=== PATIENT | female | born 1950 | race Caucasian/White ===

== ENCOUNTER → 2016-11-04 | Outpatient (CLI) | payer MEDICARE ==
--- NOTE | 2016-11-04 13:34 | US ---
EXAMINATION TYPE: US kidneys/renal and bladder DATE OF EXAM: 11/04/2016 COMPARISON: NONE CLINICAL HISTORY: R31.9 Hematuria, R10.9 Bilateral Flank Pain. UTI, intermittent bilateral flank pain : greater on right side, history of kidney stones, hematuria, morbidly obese patient EXAM MEASUREMENTS: Right Kidney: 11.7 x 6.1 x 5.9 cm Left Kidney: 12.4 x 5.7 x 5.2 cm Technically difficult and suboptimal study due to morbidly obese patient Right Kidney: no hydronephrosis or masses seen at this time Left Kidney: no hydronephrosis or masses seen at this time Bladder: not fully distended Bilateral Jets seen: no There is no evidence for hydronephrosis at this point in time. No nephrolithiasis is seen. No danial s are identified on images saved. The urinary bladder is anechoic. Bilateral ureteral jets are not seen. Loss of cortical medullary differentiation left kidney is identified on images saved. Incidental hete rogeneous appearance to visualize liver suggests fatty infiltration. IMPRESSION: Suboptimal study without hydronephrosis seen bilaterally.
== END | disposition home or self-care (01) ==
LOC: RADUSWWP 12:55
PROVIDERS: ATTEND Internal Medicine
DX: R31.9 Hematuria, unspecified (principal); R10.32 Left lower quadrant pain; R10.31 Right lower quadrant pain
CPT/HCPCS: 76770

== ENCOUNTER → 2017-01-06 | Outpatient (CLI) | payer MEDICARE ==
--- NOTE | 2017-01-07 10:46 | MM ---
Reason for exam: screening (asymptomatic). Last mammogram was performed 5 years and 8 months ago. History: Patient is postmenopausal. Physical Findings: A clinical breast exam by your physician is recommended on an annual basis and results should be correlated with mammographic findings. MG 3D Screening Mammo W/Cad Bilateral CC, MLO, and XCCL view(s) were taken. Prior study comparison: May 19, 2011, bilateral digital screening mammo w/CAD. There are scattered fibroglandular densities. There is chronic nodularity bilaterally. ASSESSMENT: Benign, BI-RAD 2 RECOMMENDATION: Routine screening mammogram of both breasts in 1 year.
== END | disposition home or self-care (01) ==
LOC: RADMAMWWP 14:48
PROVIDERS: ATTEND Internal Medicine
DX: Z12.31 Encounter for screening mammogram for malignant neoplasm of breast (principal)
CPT/HCPCS: 77063; G0202

== ENCOUNTER → 2017-06-30 | Outpatient (CLI) | payer MEDICARE ==
[2017-06-30 16:21] LABS: Blood Urea Nitrogen 28 mg/dL (7-17)
--- NOTE | 2017-07-01 07:35 | CT ---
EXAMINATION TYPE: CT abdomen pelvis w con DATE OF EXAM: 06/30/2017 HISTORY: Patient complains of RLQ pain. CT DLP: 2074.1mGycm Automated Exposure Control for Dose Reduction was Utilized. CONTRAST: CT scan of the abdomen and pelvis is performed with oral and with IV Contrast, patient injected with 80 mL of Visipaque 320. COMPARISON: Complete abdominal ultrasound March 16, 2017 FINDINGS: LUNG BASES: Mild cardiomegaly is present. LIVER/GB: Visualized liver is heterogeneously hypodense which correlates with fatty infiltration seen on ultrasound. Some dependent densities consistent with small stones or gallbladder sludge which cor relates with ultrasound. No inflammatory change surrounds gallbladder. PANCREAS: No significant abnormality is seen. SPLEEN: No significant abnormality is seen. ADRENALS: No significant abnormality is seen. KIDNEYS: Slight cortical thinning in both kidneys is seen. BOWEL: Some diverticula are seen in the left and sigmoid colon. There is no CT evidence for acute div erticulitis. There is no suspicious small or large bowel dilatation. Normal-appearing appendix is see n from cecum. UTERUS/ADNEXA:. Calcified fibroids in the uterus are present. LYMPH NODES: No greater than 1cm abdominal or pelvic lymph nodes are appreciated. OSSEOUS STRUCTURES: Multilevel vacuum disc phenomenon and disc space narrowing in the lumbar spine. T here is similar multilevel vacuum disc phenomenon with disc space narrowing and spurring in the visua lized thoracic spine. Moderate joint space loss in both hips. OTHER: There is mild calcified plaque in the ectatic aorta. IMPRESSION: No significant finding is seen to account for patient's clinical symptoms.
== END | disposition home or self-care (01) ==
LOC: RADCTMAIN 15:38
PROVIDERS: ATTEND Surgery
DX: R10.84 Generalized abdominal pain (principal)
CPT/HCPCS: 82565; 84520; 74177; 36415; Q9967

== ENCOUNTER 2017-07-16 07:40 | Day surgery (SDC) | payer MEDICARE ==
[2017-07-14 17:14] VITALS: BMI 49.4
[~2017-07-16 07:40] MED LIST: DEXAMETHASONE SOD PHOSPHATE 10 MG/ML 1 ML VIAL IV ONE; HEPARIN SODIUM,PORCINE 5,000 UNIT/ML 1 ML VIAL SQ ONE; LACTATED RINGERS 1,000 ML IV SCH; MIDAZOLAM 2 MG/2 ML VIAL IV PRN; MORPHINE SULFATE 4 MG/ML SYRINGE IV PRN; ONDANSETRON 4 MG/2 ML VIAL IVP ONE
[2017-07-16 08:25] LABS: Glucose,Whole Blood 206 mg/dL (75-99)
[2017-07-16] MEDS ORDERED: LIDOCAINE 1% 20 ML VIAL (10MG/ML) FOR IV START INTRADERMA ONE (08:25)
--- NOTE | 2017-07-16 10:10 | P.HPADDEND ---
H&P Addendum H&P Addendum Date: 07/16/17 Patient here today for elective cholecystectomy. Her recent CAT scan showed no etiology for her right-sided pain. This was discussed with the patient by phone. Again the operative risks were reviewed with her during our office visit. No additional changes to the history and physical.
[2017-07-16] MEDS ORDERED: SUCCINYLCHOLINE CHLORIDE 100 MG/5 ML SYR IV ONE (10:12)
[2017-07-16] MEDS ORDERED: GLYCOPYRROLATE 0.2 MG/ML 2 ML VIAL ONE (10:12)
[2017-07-16] MEDS ORDERED: fentaNYL (PF) 50 MCG/ML 2 ML AMP ONE (10:12)
[2017-07-16] MEDS ORDERED: ePHEDrine SULFATE/0.9% NACL/PF 50 MG/5 ML SYRINGE IV ONE (10:12)
[2017-07-16] MEDS ORDERED: NEOSTIGMINE 1 MG/ML 10 ML VIAL ONE (10:12)
[2017-07-16] MEDS ORDERED: ROCURONIUM BROMIDE 10 MG/ML 10 ML VIAL IV ONE (10:12)
[2017-07-16] MEDS ORDERED: MIDAZOLAM 2 MG/2 ML VIAL ONE (10:12)
[2017-07-16] MEDS ORDERED: LIDOCAINE 1% INJ 10MG/ML (20 ML MDV) ONE (10:12)
[2017-07-16] MEDS ORDERED: PHENYLEPHRINE-0.9% NACL SYG 1 MG/10 ML SYRINGE ONE (10:12)
[2017-07-16] MEDS ORDERED: PROPOFOL 10 MG/ML 20 ML VIAL IV ONE (10:12)
[2017-07-16] MEDS ORDERED: BUPIVACAINE (PF) 0.5% 30 ML VIAL SQ ONE ×2 (10:35)
[2017-07-16] MEDS ORDERED: NALOXONE 0.4 MG/ML 1 ML VIAL IV PRN (11:09)
[2017-07-16] MEDS ORDERED: HYDROcodone/APAP 5-325MG 1 EACH TAB PO PRN (11:09)
--- NOTE | 2017-07-16 11:10 | P.OP ---
Date of Procedure: 07/16/17 Procedure(s) Performed: PREOPERATIVE DIAGNOSIS: Chronic cholecystitis POSTOPERATIVE DIAGNOSIS: Same PROCEDURE: Laparoscopic cholecystectomy SURGEON: Julissa EBL: Minimal see anesthesia record ANESTHESIA: Gen. COMPLICATIONS: None OPERATIVE PROCEDURE: The patient was brought and placed on the operating room table in the supine position. The patient was placed under general anesthesia at that time. The abdomen was prepped and draped in the usual sterile fashion. A small vertical infraumbilical incision was made. The fascia was grasped with the Jocelyn forceps. The fascia was retracted anteriorly. The Veress needle was advanced into the peritoneal cavity. The saline drop test was normal. Insufflation took place up to 15 mmHg. A 5 mm optical trocar was advanced and the peritoneal cavity. 2 additional 5 mm trochars were placed in the right upper quadrant under direct visualization. A 10 mm trocar was advanced into the epigastric incision site. The gallbladder was retracted superiorly and laterally. The peritoneum overlying the infundibulum was bluntly dissected. The patient's cystic duct was visualized. The junction between the cystic duct common and hepatic duct was identified. The cystic duct was then divided after placement of 3 10 mm clips on the patient's side and one on the specimen side. The cystic artery was identified and clipped as well. A small vessel was seen along the gallbladder fossa and clipped as well. The gallbladder was then removed from the liver bed using electrocautery. The gallbladder was then removed from the epigastric trocar site with an Endo Catch bag. The gallbladder fossa was irrigated with saline. There was no evidence of any bleeding or biliary drainage seen. The trochars were then removed. The fascia at the 10 millimeter site was closed using a figure-of- eight 0 Vicryl stitch. The skin at all 4 sites was closed using a 4-0 Monocryl stitch. A small area of bleeding at the epigastric trocar site was controlled using a [id number] 4-0 Monocryl stitch. At the end of this procedure the sponge and needle counts were correct. DISPOSITION: Stable to the recovery room
[2017-07-16 11:37] VITALS: TEMP 98.6
[2017-07-16 11:52] LABS: Glucose,Whole Blood 319 mg/dL (75-99)
[2017-07-16] MEDS ORDERED: INSULIN ASPART 100 UNIT/ML 1 ML 10 ML VIAL SQ ONE ×2 (11:53→15:10)
[2017-07-16] MEDS: HYDROmorphone 0.5 MG/0.5 ML SYRINGE IVP ONE ×2 (12:00→12:16)
[2017-07-16] MEDS ORDERED: LACTATED RINGERS 1,000 ML IV ONE ×2 (12:32)
[2017-07-16 14:57] LABS: Glucose,Whole Blood 328 mg/dL (75-99)
[2017-07-16 15:16] VITALS: BP 120/64
[2017-07-16 16:34] VITALS: PULSE 72; RESP 18
[2017-07-16 17:07] LABS: Glucose,Whole Blood 322 mg/dL (75-99)
== END 2017-07-16 17:18 | disposition home or self-care (01) ==
LOC: OR 07:40
PROVIDERS: ATTEND Surgery
DX: K80.10 Calculus of gallbladder with chronic cholecystitis without obstruction (principal); I10 Essential (primary) hypertension; E11.9 Type 2 diabetes mellitus without complications; M19.90 Unspecified osteoarthritis, unspecified site; E66.01 Morbid (severe) obesity due to excess calories; M79.7 Fibromyalgia; G47.33 Obstructive sleep apnea (adult) (pediatric); Z79.82 Long term (current) use of aspirin; Z79.84 Long term (current) use of oral hypoglycemic drugs; Z79.899 Other long term (current) drug therapy; Z68.42 Body mass index [BMI] 45.0-49.9, adult
CPT/HCPCS: 88304; 47562; J2250; J2270; J1644; J1100; J2710; J0690; J2405; J2001; J3010; J2370; J0330; J2704; J1170

== ENCOUNTER 2018-06-13 09:00 | Inpatient (IN) | payer MEDICARE ==
--- NOTE | 2018-06-13 09:51 | ED ---
General Adult HPI - General Chief complaint: Shortness of Breath Stated complaint: Diff Breathing Time Seen by Provider: 06/13/18 09:00 Source: patient, RN notes reviewed Mode of arrival: wheelchair Limitations: no limitations - History of Present Illness Initial comments: This is a 67-year-old female with past mental history significant for hypertension. Patient states yesterday she started feeling some intermittent palpitations and shortness of breath with exertion. Patient states she had been noticing she had a cough but it was a dry cough there was no sputum production. Patient states EKG she has some sharp chest pain it was only lasting 1-2 seconds. Patient states currently she only complains of some shortness of breath and palpitations. Patient states she's never had any history of atrial fibrillation. Patient states the main reason she came in was the shortness of breath with exertion. Patient is also had some increased edema to her feet. Patient denies any dominant pain. Patient denies nausea vomiting diarrhea. Patient denies any fever or chills. Patient denies lightheadedness dizziness or near syncopal episode. - Related Data Home Medications Medication Instructions Recorded Confirmed Aspirin 81 mg PO DAILY 04/15/16 06/13/18 Diclofenac Sodium [Voltaren] 75 mg PO DAILY 04/15/16 06/13/18 Venlafaxine HCl [Effexor] 37.5 mg PO BID 04/15/16 06/13/18 amLODIPine BESYLATE/BENAZEPRIL 1 cap PO DAILY 04/15/16 06/13/18 [Lotrel 5-20 mg Capsule] metFORMIN HCL [Glucophage] 1,000 tab PO BID 04/15/16 06/13/18 Atorvastatin [Lipitor] 10 mg PO HS 07/14/17 06/13/18 Ergocalciferol (Vitamin D2) 50,000 unit PO WEEKLY 07/14/17 06/13/18 [Vitamin D2] glipiZIDE [Glucotrol] 10 mg PO AC-BID 07/14/17 06/13/18 Pregabalin [Lyrica] 150 mg PO DAILY 06/13/18 06/13/18 sitaGLIPtin [Januvia] 100 mg PO DAILY 06/13/18 06/13/18 Allergies Allergy/AdvReac Type Severity Reaction Status Date / Time No Known Allergies Allergy Verified 06/13/18 10:24 Review of Systems ROS Statement: Those systems with pertinent positive or pertinent negative responses have been documented in the HPI. ROS Other: All systems not noted in ROS Statement are negative. Past Medical History Past Medical History: Diabetes Mellitus, Fibromyalgia, Hyperlipidemia, Hypertension, Osteoarthritis (OA) Additional Past Medical History / Comment(s): HX COLON POLYPS, ARTHRITIS KNEES. , KIDNEY STONES. History of Any Multi-Drug Resistant Organisms: None Reported Additional Past Surgical History / Comment(s): LITHOTRIPSY, D&C. COLONOSCOPY. Past Anesthesia/Blood Transfusion Reactions: No Reported Reaction Past Psychological History: Depression Smoking Status: Never smoker Past Alcohol Use History: Rare Past Drug Use History: None Reported - Past Family History Mother Family Medical History: Cancer General Exam - General Exam Comments Initial Comments: GENERAL: Patient is well-developed and well-nourished. Patient is nontoxic and well- hydrated and is in mild distress. ENT: Neck is soft and supple. No significant lymphadenopathy is noted. Oropharynx is clear. Moist mucous membranes. Neck has full range of motion without eliciting any pain. EYES: The sclera were anicteric and conjunctiva were pink and moist. Extraocular movements were intact and pupils were equal round and reactive to light. Eyelids were unremarkable. PULMONARY: Patient is tachycardic and has an irregular rate and rhythm. Heart rate is about 160 beats a minute CARDIOVASCULAR: There is a regular rate and rhythm without any murmurs gallops or rubs. ABDOMEN: Soft and nontender with normal bowel sounds. No palpable organomegaly was noted. There is no palpable pulsatile mass. SKIN: Skin is clear with no lesions or rashes and otherwise unremarkable. NEUROLOGIC: Patient is alert and oriented x3. Cranial nerves II through XII are grossly intact. Motor and sensory are also intact. Normal speech, volume and content. Symmetrical smile. MUSCULOSKELETAL: Normal extremities with adequate strength and full range of motion. 1+ edema bilaterally LYMPHATICS: No significant lymphadenopathy is noted PSYCHIATRIC: Normal psychiatric evaluation. Limitations: no limitations Course Vital Signs 06/13/18 06/13/18 06/13/18 09:01 09:44 11:07 Temperature 98.9 F Pulse Rate 156 H 158 H 139 H Respiratory 28 H 18 18 Rate Blood Pressure 147/99 108/68 118/87 O2 Sat by Pulse 92 L 96 98 Oximetry Medical Decision Making - Medical Decision Making EKG shows atrial fibrillation with rapid ventricular response occasional PVC at 160 beats a minute. Patient's EKG shows no ST segment elevation or depression. I started the patient a Cardizem drip no bolus was given because of blood pressure was systolic blood pressure at 104. I started the patient on heparin as well. I consulted Dr. Nava he agreed to admit the patient admitted the patient I consult to cardiology. Patient requested Dr. Nava. - Lab Data Result diagrams: 06/13/18 09:30 06/13/18 09:30 Lab Results 06/13/18 06/13/18 06/13/18 Range/Units 09:30 09:30 09:30 WBC 12.4 H (3.8-10.6) k/uL RBC 4.17 (3.80-5.40) m/uL Hgb 11.6 (11.4-16.0) gm/dL Hct 35.6 (34.0-46.0) % MCV 85.4 (80.0-100.0) fL MCH 27.8 (25.0-35.0) pg MCHC 32.5 (31.0-37.0) g/dL RDW 15.1 (11.5-15.5) % Plt Count 288 (150-450) k/uL Neutrophils % 80 % Lymphocytes % 12 % Monocytes % 4 % Eosinophils % 3 % Basophils % 0 % Neutrophils # 9.9 H (1.3-7.7) k/uL Lymphocytes # 1.5 (1.0-4.8) k/uL Monocytes # 0.4 (0-1.0) k/uL Eosinophils # 0.4 (0-0.7) k/uL Basophils # 0.0 (0-0.2) k/uL Hypochromasia Slight PT (9.0-12.0) sec INR (<1.2) APTT (22.0-30.0) sec Sodium 143 (137-145) mmol/L Potassium 4.5 (3.5-5.1) mmol/L Chloride 110 H (98-107) mmol/L Carbon Dioxide 20 L (22-30) mmol/L Anion Gap 13 mmol/L BUN 23 H (7-17) mg/dL Creatinine 0.89 (0.52-1.04) mg/dL Est GFR (CKD-EPI)AfAm 77 (>60 ml/min/1.73 sqM) Est GFR (CKD-EPI)NonAf 67 (>60 ml/min/1.73 sqM) Glucose 255 H (74-99) mg/dL Calcium 9.5 (8.4-10.2) mg/dL Magnesium 1.3 L (1.6-2.3) mg/dL Total Bilirubin 0.7 (0.2-1.3) mg/dL AST 19 (14-36) U/L ALT 17 (9-52) U/L Alkaline Phosphatase 85 (38-126) U/L Total Creatine Kinase 35 (30-135) U/L CK-MB (CK-2) 1.0 (0.0-2.4) ng/mL CK-MB (CK-2) Rel Index 2.9 Troponin I <0.012 (0.000-0.034) ng/mL NT-Pro-B Natriuret Pep pg/mL Total Protein 6.7 (6.3-8.2) g/dL Albumin 3.7 (3.5-5.0) g/dL 06/13/18 06/13/18 Range/Units 09:30 09:30 WBC (3.8-10.6) k/uL RBC (3.80-5.40) m/uL Hgb (11.4-16.0) gm/dL Hct (34.0-46.0) % MCV (80.0-100.0) fL MCH (25.0-35.0) pg MCHC (31.0-37.0) g/dL RDW (11.5-15.5) % Plt Count (150-450) k/uL Neutrophils % % Lymphocytes % % Monocytes % % Eosinophils % % Basophils % % Neutrophils # (1.3-7.7) k/uL Lymphocytes # (1.0-4.8) k/uL Monocytes # (0-1.0) k/uL Eosinophils # (0-0.7) k/uL Basophils # (0-0.2) k/uL Hypochromasia PT 9.9 (9.0-12.0) sec INR 0.9 (<1.2) APTT 22.8 (22.0-30.0) sec Sodium (137-145) mmol/L Potassium (3.5-5.1) mmol/L Chloride (98-107) mmol/L Carbon Dioxide (22-30) mmol/L Anion Gap mmol/L BUN (7-17) mg/dL Creatinine (0.52-1.04) mg/dL Est GFR (CKD-EPI)AfAm (>60 ml/min/1.73 sqM) Est GFR (CKD-EPI)NonAf (>60 ml/min/1.73 sqM) Glucose (74-99) mg/dL Calcium (8.4-10.2) mg/dL Magnesium (1.6-2.3) mg/dL Total Bilirubin (0.2-1.3) mg/dL AST (14-36) U/L ALT (9-52) U/L Alkaline Phosphatase (38-126) U/L Total Creatine Kinase (30-135) U/L CK-MB (CK-2) (0.0-2.4) ng/mL CK-MB (CK-2) Rel Index Troponin I (0.000-0.034) ng/mL NT-Pro-B Natriuret Pep 1320 pg/mL Total Protein (6.3-8.2) g/dL Albumin (3.5-5.0) g/dL Critical Care Time Critical Care Time: Yes Total Critical Care Time: 35 Disposition Clinical Impression: New onset atrial fibrillation Disposition: ADMITTED IP TO THIS HOSP Referrals: Ronnie Mendoza MD [Primary Care Provider] - 1-2 days Time of Disposition: 11:35
--- NOTE | 2018-06-13 10:02 | XR ---
EXAMINATION TYPE: XR chest 2V DATE OF EXAM: 06/13/2018 COMPARISON: NONE HISTORY: Dyspnea. TECHNIQUE: Frontal and lateral views of the chest are obtained. FINDINGS: Cardiomegaly is present. There are small bilateral pleural effusions with moderate central opacities favoring interstitial edema. Upper lungs are clear without pneumothorax. Osseous structure s are intact. IMPRESSION: Findings are consistent with CHF exacerbation as there is cardiomegaly with small bilater al pleural effusions and moderate bilateral interstitial edema felt present.
[2018-06-13 10:08] LABS: Basophils % (A) 0 %; Eosinophils # (A) 0.4 k/uL (0-0.7); Eosinophils % (A) 3 %; HCT 35.6 % (34.0-46.0); HGB 11.6 gm/dL (11.4-16.0); Hypochromasia Slight; Lymphocytes # (A) 1.5 k/uL (1.0-4.8); Lymphocytes % (A) 12 %; MCH 27.8 pg (25.0-35.0); MCHC 32.5 g/dL (31.0-37.0); MCV 85.4 fL (80.0-100.0); Monocytes # (A) 0.4 k/uL (0-1.0); Monocytes % (A) 4 %; Neutrophils # (A) 9.9 k/uL (1.3-7.7); Neutrophils % (A) 80 %; Platelet Count 288 k/uL (150-450); RBC 4.17 m/uL (3.80-5.40); RDW 15.1 % (11.5-15.5); WBC 12.4 k/uL (3.8-10.6)
[2018-06-13] MEDS: DILTIAZEM 50 MG in SODIUM CHLORIDE 0.9% 40 ML IV SCH ×2 (10:18→18:06)
[2018-06-13 10:19] LABS: Albumin 3.7 g/dL (3.5-5.0); Calcium 9.5 mg/dL (8.4-10.2); Magnesium 1.3 mg/dL (1.6-2.3); Total Bilirubin 0.7 mg/dL (0.2-1.3); Total Protein 6.7 g/dL (6.3-8.2)
[2018-06-13 10:24] LABS: INR 0.9 (<1.2); Partial Thromboplastin Time 22.8 sec (22.0-30.0); Prothrombin Time 9.9 sec (9.0-12.0)
[2018-06-13 10:26] LABS: Potassium 4.5 mmol/L (3.5-5.1)
[2018-06-13 10:32] LABS: Creatine Kinase 35 U/L (30-135)
[2018-06-13 10:46] LABS: Troponin I <0.012 ng/mL (0.000-0.034)
[2018-06-13] MEDS ORDERED: HEPARIN SODIUM,PORCINE 5,000 UNIT/ML 1 ML VIAL IV ONE (11:33)
[2018-06-13] MEDS: HEPARIN SOD,PORK IN 0.45% NACL 25,000 UNIT in 0.45% NACL 1 250ML.BAG IV SCH (12:10)
[2018-06-13 17:34] LABS: Glucose,Whole Blood 200 mg/dL (75-99)
[2018-06-13] MEDS: ASPIRIN 81 MG PO SCH (17:37)
[2018-06-13] MEDS: amLODIPine 5 MG TAB PO SCH (17:37)
[2018-06-13] MEDS: PREGABALIN 75 MG CAP PO SCH (17:38)
[2018-06-13] MEDS: LISINOPRIL 20 MG TAB PO SCH (17:38)
[2018-06-13] MEDS: ETODOLAC 400 MG TAB PO SCH (17:38)
[2018-06-13] MEDS: VENLAFAXINE HCL 37.5 MG TAB PO SCH ×2 (17:38→20:45)
[2018-06-13] MEDS: LINAGLIPTIN 5 MG TABLET PO SCH (17:41)
[2018-06-13] MEDS: metFORMIN 500 MG TAB PO SCH (17:41)
[2018-06-13] MEDS: glipiZIDE 10 MG TAB PO SCH (17:41)
[2018-06-13] MEDS: INSULIN ASPART 100 UNIT/ML 1 ML 10 ML VIAL SQ SCH ×2 (17:44→21:44)
[2018-06-13] MEDS ORDERED: FUROSEMIDE 10 MG/ML 4 ML VIAL IV STA (19:54)
[2018-06-13] MEDS ORDERED: LACTULOSE 20 GM/30 ML CUP PO PRN (19:55)
[2018-06-13] MEDS ORDERED: MAGNESIUM HYDROXIDE 2,400 MG/10 ML CUP PO PRN (19:55)
[2018-06-13] MEDS ORDERED: TEMAZEPAM 15 MG CAP PO PRN (19:55)
[2018-06-13] MEDS ORDERED: CALCIUM CARBONATE 500 MG CHEWABLE PO PRN (19:55)
[2018-06-13] MEDS ORDERED: ONDANSETRON 4 MG/2 ML VIAL IVP PRN (19:55)
[2018-06-13] MEDS ORDERED: ALPRAZolam 0.25 MG TAB PO PRN (19:55)
[2018-06-13] MEDS: ATORVASTATIN 10 MG TAB PO SCH (20:45)
--- NOTE | 2018-06-13 20:57 | HP ---
HISTORY AND PHYSICAL DATE OF ADMISSION: 06/13/2018 DATE OF SERVICE: 06/13/2018 PRESENTING COMPLAINT: Short of breath, palpitation. HISTORY OF PRESENTING COMPLAINT: This is a pleasant 67-year-old patient, well known to me, who follows with the family doctor, Dr. Mendoza. She requested to be admitted to my service. Chronic stable medical conditions include hypertension, diabetes, fibromyalgia, sciatica, osteoarthritis, depression. She presented with her friend and her sister. Patient at her baseline uses a cane to get about. Two days ago she felt she had developed what she describes as a cold and became congested in the chest, and by yesterday, over 24 hours, she had become more and more short of breath, started having palpitation, shortness of breath and noticed swelling in the lower extremities. She could barely walk without getting really short of breath. She presented to the ER and was found to be in atrial fibrillation with rapid ventricular rate. The patient was started on IV Cardizem drip and IV heparin. She denies any fever or chills. No chest pain. Denies any prior cardiac history. She thinks she may have had a stress test about 2 or 3 years ago. REVIEW OF SYSTEMS: CONSTITUTIONAL: Tired. HEENT: None. RESPIRATORY: As above. CARDIOVASCULAR: As above GASTROINTESTINAL: None. GENITOURINARY: None. MUSCULOSKELETAL: Arthritic pain in many joints. As above. DERMATOLOGICAL: None. HEMATOLOGIC: None. LYMPHATICS: None. PSYCHIATRY: None. NEUROLOGICAL: None. NEUROLOGICAL none. PAST MEDICAL HISTORY: 1. Hypertension. 2. Diabetes. 3. Fibromyalgia. 4. Sciatica. 5. Insomnia. 6. Osteoarthritis. 7. Depression. PAST SURGICAL HISTORY: 1. Cholecystectomy. 2. Tubal ligation. 3. Lithotripsy. 4. Colonoscopy. PSYCH HISTORY: Depression. SOCIAL HISTORY: Patient's son lives with her. She uses a cane or walker at times. She does drive. No smoking. Alcohol rarely. FAMILY HISTORY: Dementia. Mother had colon cancer. HOME MEDICATIONS: 1. Januvia 100 mg a day. 2. Metformin 1000 mg b.i.d. 3. Glipizide 10 mg b.i.d. 4. Lotrel 5/20 one capsule p.o. daily. 5. Effexor 37.5 b.i.d. 6. Lyrica 150 mg p.o. daily. 7. Vitamin D2 50,000 units p.o. weekly. 8. Voltaren 75 mg p.o. daily. 9. Lipitor 10 mg at bedtime. 10.Aspirin 81 mg p.o. daily. ALLERGIES: NONE. PHYSICAL EXAMINATION: VITAL SIGNS ON PRESENTATION: Temperature 98.9, pulse 156, respiration 28, blood pressure 147/99, pulse ox 92% on room air. GENERAL APPEARANCE: Well built; BMI 49.4. Sitting at the edge of the bed, slightly short of breath. EYES: Pupils equal. Conjunctivae normal. HEENT: External appearance of nose and ears normal. Oral cavity normal. NECK: Short, thick. JVD unable to assess. Mass not palpable. RESPIRATORY: Effort increased. LUNGS: Diminished breath sounds. CARDIOVASCULAR: Heart sounds muffled. Some edema. ABDOMEN: Distended, soft. Liver and spleen not palpable. LYMPHATIC: No lymph node palpable in neck or axillae. PSYCHIATRY: Alert and oriented x3. Mood and affect normal. MUSCULOSKELETAL: Evidence of osteoarthritis, especially in the hands and knees. INVESTIGATIONS: White count 12.4, hemoglobin 11.6, potassium 4.5, BUN 23, creatinine 0.89, blood glucose 255, magnesium 1.3. Troponin less than 0.012. ProBNP 1320. EKG tracing, personally reviewed by me, shows atrial fibrillation, rapid ventricular rate. Chest x-ray film, personally reviewed by me, shows cardiomegaly, bilateral venous prominence, interstitial edema. ASSESSMENT: 1. New-onset atrial fibrillation with rapid ventricular rate. 2. Acute pulmonary edema, possibly precipitated by uncontrolled atrial fibrillation. Patient has no prior history of cardiac disease. 3. Essential hypertension. 4. Diabetes mellitus, type 2, on oral hypoglycemic, uncontrolled with hyperglycemia. 5. Chronic fibromyalgia. 6. Sciatica. 7. Primary osteoarthritis. 8. Depression not otherwise specified. 9. Chronic insomnia. 10.Morbid obesity with body mass index of 49.4. PLAN: Patient is on IV Cardizem drip. Patient was put on IV heparin. Patient will need oral anticoagulation. Will check patient's TSH in the morning. I put the patient on IV Lasix 40 q.12. Two-D echocardiogram has been ordered. Accu-Cheks will be followed with sliding scale insulin. Care was discussed with the patient and family at bedside. Questions were answered. MMODL / IJN: [id number] /
[2018-06-13 21:09] LABS: Glucose,Whole Blood 166 mg/dL (75-99)
[2018-06-14 03:49] LABS: Calcium 9.1 mg/dL (8.4-10.2); Potassium 4.4 mmol/L (3.5-5.1)
[2018-06-14] MEDS: DILTIAZEM 50 MG in SODIUM CHLORIDE 0.9% 40 ML IV SCH ×4 (04:01→20:47)
[2018-06-14] MEDS: HEPARIN SODIUM,PORCINE 5,000 UNIT/ML 1 ML VIAL IV PRN ×2 (04:40→21:46)
[2018-06-14] MEDS: INSULIN ASPART 100 UNIT/ML 1 ML 10 ML VIAL SQ SCH ×4 (06:54→20:47)
[2018-06-14 06:55] LABS: Glucose,Whole Blood 126 mg/dL (75-99)
[2018-06-14] MEDS: glipiZIDE 10 MG TAB PO SCH ×2 (07:10→18:10)
[2018-06-14] MEDS: metFORMIN 500 MG TAB PO SCH ×2 (07:10→18:10)
[2018-06-14] MEDS: PREGABALIN 75 MG CAP PO SCH (09:27)
[2018-06-14] MEDS: ASPIRIN 81 MG PO SCH (09:27)
[2018-06-14] MEDS: FUROSEMIDE 10 MG/ML 4 ML VIAL IV SCH ×3 (09:27→20:17)
[2018-06-14] MEDS: LINAGLIPTIN 5 MG TABLET PO SCH (09:27)
[2018-06-14] MEDS: LISINOPRIL 20 MG TAB PO SCH (09:27)
[2018-06-14] MEDS: amLODIPine 5 MG TAB PO SCH (09:27)
[2018-06-14] MEDS: ETODOLAC 400 MG TAB PO SCH (09:29)
[2018-06-14] MEDS: VENLAFAXINE HCL 37.5 MG TAB PO SCH ×2 (09:30→20:17)
--- NOTE | 2018-06-14 10:06 | ECHOF ---
Referral Reason:af MEASUREMENTS -------- HEIGHT: 157.5 cm WEIGHT: 122.5 kg BP: 113/68 RVIDd: 2.4 cm (< 3.3) IVSd: 1.4 cm (0.6 - 1.1) LVIDd: 4.1 cm (3.9 - 5.3) LVPWd: 1.5 cm (0.6 - 1.1) IVSs: 2.0 cm LVIDs: 3.3 cm LVPWs: 1.9 cm LA Diam: 3.8 cm (2.7 - 3.8) LAESV Index (A-L): 30.63 ml/m Ao Diam: 2.9 cm (2.0 - 3.7) AV Cusp: 2.1 cm (1.5 - 2.6) MV EXCURSION: 14.577 mm (> 18.000) MV EF SLOPE: 118 mm/s (70 - 150) EPSS: 1.2 cm RAP: 5.00 mmHg RVSP: 27.74 mmHg FINDINGS -------- Atrial fibrillation. This was a technically adequate study. The left ventricular size is normal. There is moderate concentric left ventricular hypertrophy. O verall left ventricular systolic function is mildly impaired with, an EF between 45 - 50 %. The right ventricle is normal in size. LA is midly dilated 29-33ml/m2. The right atrium is normal in size. The aortic valve is trileaflet and appears structurally normal. Mild mitral regurgitation is present. Mild tricuspid regurgitation present. Right ventricular systolic pressure is normal at < 35 mmHg. Trace/mild (physiologic) pulmonic regurgitation. The aortic root size is normal. Normal inferior vena cava with normal inspiratory collapse consistent with estimated right atrial pre ssure of 5 mmHg. The inferior vena cava is mildly dilated. There is no pericardial effusion. CONCLUSIONS -------- 1. Atrial fibrillation. 2. This was a technically adequate study. 3. The left ventricular size is normal. 4. There is moderate concentric left ventricular hypertrophy. 5. Overall left ventricular systolic function is mildly impaired with, an EF between 45 - 50 %. 6. The right ventricle is normal in size. 7. LA is midly dilated 29-33ml/m2. 8. The right atrium is normal in size. 9. The aortic valve is trileaflet and appears structurally normal. 10. Mild mitral regurgitation is present. 11. Mild tricuspid regurgitation present. 12. Right ventricular systolic pressure is normal at < 35 mmHg. 13. Trace/mild (physiologic) pulmonic regurgitation. 14. The aortic root size is normal. 15. Normal inferior vena cava with normal inspiratory collapse consistent with estimated right atrial pressure of 5 mmHg. 16. The inferior vena cava is mildly dilated. 17. There is no pericardial effusion. CASINO WORKER: Karla Phillips RDCS
--- NOTE | 2018-06-14 10:16 | P.CRDCN ---
History of Present Illness Consult date: 06/14/18 Requesting physician: Oscar Nava Consult reason: atrial fibrillation, congestive heart failure Chief complaint: Shortness of breath and palpitations History of present illness: This is a pleasant 67-year-old female with history of hypertension, diabetes, hyperlipidemia, fibromyalgia, depression, who recently has been dealing with an upper respiratory infection since approximately Wednesday or so. She felt on Wednesday to be more congested, she also noticed herself to be significantly more short of breath. She also noticed palpitations in her chest which started on Wednesday or Wednesday off and on. She came to the emergency room for further evaluation. GN presentation here showed atrial fibrillation with a rapid ventricular response. Chest x-ray performed on admission showed findings consistent with congestive heart failure exacerbation, cardiomegaly, small bilateral pleural effusion and moderate bilateral interstitial edema. Blood pressure on arrival here 148/98, heart rate 156, temperature 98.9, 92% on room air. Blood pressure this morning 114/60 with a heart rate of 100, 93% on 3 L of oxygen. White blood cell count 12.4, hemoglobin 11.6, platelet count 288. Sodium 142, potassium 4.4, BUN 30 and creatinine 1.2, her BUN yesterday was 23 and creatinine 0.8. Blood glucose on arrival 255, Mag on arrival 1.3, 1.4 this morning. Troponin 0.012. BNP level 1320. At the time of my examination this morning, patient is sitting up in her chair at bedside. She does state that she feels significantly better than her presentation here. Denies palpitations at present although she continues to be in atrial fibrillation. She is currently on IV heparin and IV Cardizem. Patient did have a stress test, Anisa scan, performed here February 2017 which was negative for any reversible ischemia. Past Medical History Past Medical History: Diabetes Mellitus, Fibromyalgia, Hyperlipidemia, Hypertension, Osteoarthritis (OA) Additional Past Medical History / Comment(s): NIDDM type II, neuropathy bilateral feet, R leg sciatica, arthritis bilateral knees, kidney stones with surgery, sinus allergies. History of Any Multi-Drug Resistant Organisms: None Reported Past Surgical History: Cholecystectomy, Tubal Ligation Additional Past Surgical History / Comment(s): LITHOTRIPSY, D&C. COLONOSCOPY/ BENIGN POLYP, LAP OMER. Past Anesthesia/Blood Transfusion Reactions: No Reported Reaction Smoking Status: Never smoker - Past Family History Mother Family Medical History: Cancer, Dementia Additional Family Medical History / Comment(s): Mother had colon cancer. Father Family Medical History: CVA/TIA Additional Family Medical History / Comment(s): Father was healthy until later in life when he had a bowel obstruction and CVA. Medications and Allergies Home Medications Medication Instructions Recorded Confirmed Type Aspirin 81 mg PO DAILY 04/15/16 06/13/18 History Diclofenac Sodium [Voltaren] 75 mg PO DAILY 04/15/16 06/13/18 History Venlafaxine HCl [Effexor] 37.5 mg PO BID 04/15/16 06/13/18 History amLODIPine BESYLATE/BENAZEPRIL 1 cap PO DAILY 04/15/16 06/13/18 History [Lotrel 5-20 mg Capsule] metFORMIN HCL [Glucophage] 1,000 tab PO BID 04/15/16 06/13/18 History Atorvastatin [Lipitor] 10 mg PO HS 07/14/17 06/13/18 History Ergocalciferol (Vitamin D2) 50,000 unit PO WEEKLY 07/14/17 06/13/18 History [Vitamin D2] glipiZIDE [Glucotrol] 10 mg PO AC-BID 07/14/17 06/13/18 History Pregabalin [Lyrica] 150 mg PO DAILY 06/13/18 06/13/18 History sitaGLIPtin [Januvia] 100 mg PO DAILY 06/13/18 06/13/18 History Allergies Allergy/AdvReac Type Severity Reaction Status Date / Time No Known Allergies Allergy Verified 06/13/18 10:24 Physical Exam Vitals: Vital Signs Temp Pulse Pulse Resp BP BP Pulse Ox 06/14/18 08:06 93 L 06/14/18 06:12 101 H 113/68 06/14/18 03:30 138 H 15 134/85 92 L 06/14/18 02:00 109/51 06/14/18 00:50 130 H 124/68 06/13/18 23:39 130 H 18 112/55 94 L 06/13/18 20:32 98.7 F 137 H 16 141/75 94 L 06/13/18 17:30 98.1 F 71 20 112/78 95 06/13/18 16:30 129 H 22 104/75 95 06/13/18 14:05 150 H 24 97/72 93 L 06/13/18 11:07 139 H 18 118/87 98 Intake and Output 06/13/18 06/14/18 06/14/18 22:59 06:59 14:59 Intake Total 254.737 85.83 410 Balance 254.737 85.83 410 Intake: Intake, IV Titration 134.737 85.83 50 Amount Diltiazem 50 mg In Sodium 50 Chloride 0.9% 40 ml @ 10 MG/HR 10 mls/hr IV .Q5H CHARLY Rx#:[id number] Diltiazem 50 mg In Sodium 39 Chloride 0.9% 40 ml @ 5 MG/HR 5 mls/hr IV .Q10H CHARLY Rx#:[id number] Heparin Sod,Pork in 0.45% 95.737 85.83 NaCl 25,000 unit In 0.45 % NaCl 1 250ml.bag @ 8.16 UNITS/KG/HR 9.99 mls/hr IV .Q24H CHARLY Rx#: [id number] Oral 120 360 Other: # Voids 1 3 # Bowel Movements 1 PHYSICAL EXAMINATION: GENERAL: 67-year-old female in no acute distress at the time of my examination HEENT: Head is atraumatic, normocephalic. Pupils equal, round. Sclera anicteric. Conjunctiva are clear. Mucous membranes of the mouth are moist. Neck is supple. There is no elevated jugular venous pressure. No carotid bruit is heard. HEART EXAMINATION: Heart S1 and S2 irregularly irregular CHEST EXAMINATION: Lungs reveal diminished air entry to bilateral bases. ABDOMEN: Soft, obese, nontender. Bowel sounds are heard. No organomegaly noted. EXTREMITIES: 2+ peripheral pulses with trace evidence of peripheral edema and no calf tenderness noted. NEUROLOGIC patient is awake, alert and oriented 3. . Results 06/13/18 09:30 06/14/18 03:26 Cardiac Enzymes 06/13/18 06/13/18 Range/Units 09:30 09:30 AST 19 (14-36) U/L CK-MB (CK-2) 1.0 (0.0-2.4) ng/mL Troponin I <0.012 (0.000-0.034) ng/mL Coagulation 06/13/18 06/13/18 06/14/18 Range/Units 09:30 21:02 03:26 PT 9.9 (9.0-12.0) sec APTT 22.8 23.9 24.1 (22.0-30.0) sec CBC 06/13/18 Range/Units 09:30 WBC 12.4 H (3.8-10.6) k/uL RBC 4.17 (3.80-5.40) m/uL Hgb 11.6 (11.4-16.0) gm/dL Hct 35.6 (34.0-46.0) % Plt Count 288 (150-450) k/uL Comprehensive Metabolic Panel 06/13/18 06/14/18 Range/Units 09:30 03:26 Sodium 143 142 (137-145) mmol/L Potassium 4.5 4.4 (3.5-5.1) mmol/L Chloride 110 H 110 H (98-107) mmol/L Carbon Dioxide 20 L 22 (22-30) mmol/L BUN 23 H 30 H (7-17) mg/dL Creatinine 0.89 1.29 H (0.52-1.04) mg/dL Glucose 255 H 131 H (74-99) mg/dL Calcium 9.5 9.1 (8.4-10.2) mg/dL AST 19 (14-36) U/L ALT 17 (9-52) U/L Alkaline Phosphatase 85 (38-126) U/L Total Protein 6.7 (6.3-8.2) g/dL Albumin 3.7 (3.5-5.0) g/dL Current Medications Generic Name Dose Route Start Last Admin Trade Name Freq PRN Reason Stop Dose Admin Acetaminophen 650 mg 06/13/18 19:55 Tylenol Tab PO Q6HR PRN Mild Pain or Fever > 100.5 Alprazolam 0.25 mg 06/13/18 19:55 Xanax PO Q6HR PRN Anxiety Amlodipine Besylate 5 mg 06/13/18 14:45 06/14/18 09:27 Norvasc PO 5 mg DAILY CHARLY Administration Aspirin 81 mg 06/13/18 14:45 06/14/18 09:27 Aspirin PO 81 mg DAILY CHARLY Administration Atorvastatin Calcium 10 mg 06/13/18 21:00 06/13/18 20:45 Lipitor PO 10 mg HS CHARLY Administration Calcium Carbonate/Glycine 1,000 mg 06/13/18 19:55 Tums PO Q4HR PRN Dyspepsia Etodolac 400 mg 06/13/18 14:45 06/14/18 09:29 Lodine PO 400 mg DAILY CHARLY Administration Furosemide 40 mg 06/14/18 08:00 06/14/18 09:35 Lasix IV 40 mg Q12HR CHARLY Administration Glipizide 10 mg 06/13/18 17:30 06/14/18 07:10 Glucotrol PO 10 mg AC-BID CHARLY Administration Heparin Sodium (Porcine) 0 unit 06/14/18 04:10 06/14/18 04:40 Heparin IV 4,000 unit PER PROTOCOL PRN Administration Low PTT Protocol Heparin Sodium/Sodium Chloride 250 mls @ 9.99 mls/hr 06/13/18 11:45 06/14/18 04:02 25,000 unit/ Sodium Chloride IV 14.16 units/kg/hr .Q24H CHARLY 17.34 mls/hr Titration Protocol 8.16 UNITS/KG/HR Diltiazem HCl 50 mg/ Sodium 50 mls @ 10 mls/hr 06/14/18 03:30 06/14/18 09:27 Chloride IV 10 mg/hr .Q5H CHARLY 10 mls/hr Administration 10 MG/HR Insulin Aspart 0 unit 06/13/18 17:30 06/14/18 06:54 Novolog SQ Not Given ACHS [facility] Protocol Lactulose 20 gm 06/13/18 19:55 Cephulac PO DAILY PRN Constipation Linagliptin 5 mg 06/13/18 15:00 06/14/18 09:27 Tradjenta PO 5 mg DAILY CHARLY Administration Lisinopril 20 mg 06/13/18 15:00 06/14/18 09:27 Zestril PO 20 mg DAILY [facility] Administration Magnesium Hydroxide 2,400 mg 06/13/18 19:55 Milk Of Magnesia PO DAILY PRN Constipation Metformin HCl 1,000 mg 06/13/18 17:30 06/14/18 07:10 Glucophage PO 1,000 mg AC-BID [facility] Administration Ondansetron HCl 4 mg 06/13/18 19:55 Zofran IVP Q8HR PRN Nausea And Vomiting Pregabalin 150 mg 06/13/18 15:00 06/14/18 09:27 Lyrica PO 150 mg DAILY CHARLY Administration Temazepam 15 mg 06/13/18 19:55 Restoril PO HS PRN Insomnia Venlafaxine HCl 37.5 mg 06/13/18 15:00 06/14/18 09:30 Effexor PO 37.5 mg BID CHARLY Administration Intake and Output 06/13/18 06/14/18 06/14/18 22:59 06:59 14:59 Intake Total 254.737 85.83 410 Balance 254.737 85.83 410 Intake: Intake, IV Titration 134.737 85.83 50 Amount Diltiazem 50 mg In Sodium 50 Chloride 0.9% 40 ml @ 10 MG/HR 10 mls/hr IV .Q5H CHARLY Rx#:[id number] Diltiazem 50 mg In Sodium 39 Chloride 0.9% 40 ml @ 5 MG/HR 5 mls/hr IV .Q10H [facility]LY Rx#:[id number] Heparin Sod,Pork in 0.45% 95.737 85.83 NaCl 25,000 unit In 0.45 % NaCl 1 250ml.bag @ 8.16 UNITS/KG/HR 9.99 mls/hr IV .Q24H CHARLY Rx#: [id number] Oral 120 360 Other: # Voids 1 3 # Bowel Movements 1 06/13/18 09:30 06/14/18 03:26 EKG Interpretations (text) EKG on admission here shows atrial fibrillation with a rapid ventricular response Assessment and Plan Plan: Assessment and plan #1 atrial fibrillation with rapid ventricular response, appears to be of new onset. #2 congestive heart failure, likely exacerbated by A. fib with RVR, LV function unknown #3 hypertension #4 diabetes #5 hyperlipidemia #6 recent upper respiratory infection Plan We will obtain an echocardiogram with Doppler study. We will also check a T4 and TSH level. We will check into one of the newer anticoagulants, patient has been educated regarding the importance of anticoagulation for stroke prevention. We will start the patient on a beta rené, discontinue Cardizem drip. Further recommendations to follow. DNP note has been reviewed, I agree with a documented findings and plan of care. Patient was seen and examined.
[2018-06-14] MEDS ORDERED: Magnesium Replacement Protocol 1 EACH MISC MISCELLANE PRN (11:11)
[2018-06-14 11:51] LABS: Glucose,Whole Blood 182 mg/dL (75-99)
[2018-06-14] MEDS: MAGNESIUM SULFATE-D5W PMX 1 GM in DEXTROSE/WATER 1 100ML.BAG IVPB SCH ×3 (12:43→15:48)
[2018-06-14] MEDS: METOPROLOL TARTRATE 25 MG TAB PO SCH ×2 (12:43→20:16)
[2018-06-14] MEDS: HEPARIN SOD,PORK IN 0.45% NACL 25,000 UNIT in 0.45% NACL 1 250ML.BAG IV SCH ×2 (15:50→20:16)
[2018-06-14 16:44] LABS: Glucose,Whole Blood 234 mg/dL (75-99)
[2018-06-14] MEDS: MAGNESIUM OXIDE 400 MG TAB PO SCH (20:16)
[2018-06-14] MEDS: ATORVASTATIN 10 MG TAB PO SCH (20:16)
[2018-06-14 20:21] LABS: Glucose,Whole Blood 135 mg/dL (75-99)
--- NOTE | 2018-06-15 01:01 | PN ---
PROGRESS NOTE DATE OF SERVICE: 06/14/2018. PRESENTING COMPLAINT: Short of breath. INTERVAL HISTORY: This patient was admitted with new onset atrial fibrillation with rapid ventricular rate, acute pulmonary edema. The patient feels a bit better today. A bit tired though. Heart rate was better, better controlled. The patient remained on IV heparin, IV Cardizem. The patient's brother is visiting. Did tolerate some diet. REVIEW OF SYSTEMS: Done for constitutional, cardiovascular, GI, pulmonary; relevant findings as above. CURRENT MEDICATIONS: Reviewed, that include IV Cardizem drip, IV heparin, Lopressor 25 mg b.i.d. EXAMINATION: VITAL SIGNS: Temperature 96.3, pulse 74, respiratory rate 18, blood pressure 99/53, pulse ox 93 percent on 3 L. GENERAL APPEARANCE: Sitting on the edge of the bed, less short of breath. EYES: Pupils equal. Conjunctivae normal. NECK: JVD not raised. Mass not palpable. RESPIRATORY: Effort increased. LUNGS: Diminished breath sounds. CARDIOVASCULAR: Heart sounds muffled. Some edema. ABDOMEN: Soft, nontender. Liver and spleen not palpable. PSYCHIATRY: Alert and oriented x3. Mood and affect normal. INVESTIGATIONS: Telemetry shows atrial fibrillation, rate controlled. Potassium 4.4, BUN 30, creatinine 1.29. TSH is normal. Low magnesium. ASSESSMENT: 1. New-onset atrial fibrillation rapid ventricular rate on presentation, better controlled this afternoon. 2. Acute pulmonary edema, probably precipitated by uncontrolled atrial fibrillation, doing better. 3. Essential hypertension. 4. Status post oral hypoglycemic, uncontrolled with hypoglycemia. 5. Chronic fibromyalgia. 6. Sciatica. 7. Primary osteoarthritis. 8. Depression, not otherwise specified. 9. Chronic insomnia. 10.Morbid obesity BMI of 49.4. 11.Chronic gait dysfunction. Does use a cane. PLAN: Patient remains on IV Cardizem, IV heparin. Patient will be switched over to 1 of the oral anticoagulants per Cardiology. Keep a close eye on patient's renal function as has started to creep up, we will hold off patient's morning dose of Lasix until seen by Cardiology. MMODL / IJN: [id number] /
[2018-06-15] MEDS: DILTIAZEM 50 MG in SODIUM CHLORIDE 0.9% 40 ML IV SCH ×7 (02:48→22:34)
[2018-06-15 05:31] LABS: Calcium 9.2 mg/dL (8.4-10.2); Magnesium 2.1 mg/dL (1.6-2.3); Potassium 4.7 mmol/L (3.5-5.1)
[2018-06-15] MEDS: INSULIN ASPART 100 UNIT/ML 1 ML 10 ML VIAL SQ SCH ×4 (06:22→21:05)
[2018-06-15] MEDS: metFORMIN 500 MG TAB PO SCH ×2 (06:35→17:49)
[2018-06-15] MEDS: glipiZIDE 10 MG TAB PO SCH ×2 (06:35→17:49)
[2018-06-15 06:38] LABS: Glucose,Whole Blood 107 mg/dL (75-99)
[2018-06-15] MEDS: HEPARIN SOD,PORK IN 0.45% NACL 25,000 UNIT in 0.45% NACL 1 250ML.BAG IV SCH ×2 (06:38→17:49)
[2018-06-15] MEDS: ETODOLAC 400 MG TAB PO SCH (10:54)
[2018-06-15] MEDS: PREGABALIN 75 MG CAP PO SCH (10:54)
[2018-06-15] MEDS: VENLAFAXINE HCL 37.5 MG TAB PO SCH ×2 (10:54→21:13)
[2018-06-15] MEDS: amLODIPine 5 MG TAB PO SCH (10:55)
[2018-06-15] MEDS: MAGNESIUM OXIDE 400 MG TAB PO SCH ×2 (10:55→20:24)
[2018-06-15] MEDS: LISINOPRIL 20 MG TAB PO SCH (10:55)
[2018-06-15] MEDS: METOPROLOL TARTRATE 25 MG TAB PO SCH (10:55)
[2018-06-15] MEDS: ASPIRIN 81 MG PO SCH (10:55)
[2018-06-15] MEDS: LINAGLIPTIN 5 MG TABLET PO SCH (10:55)
[2018-06-15 11:55] LABS: Glucose,Whole Blood 149 mg/dL (75-99)
--- NOTE | 2018-06-15 15:05 | P.PN ---
Subjective Progress Note Date: 06/15/18 Principal diagnosis: CHF/atrial fibrillation This is a pleasant 67-year-old female patient with a past medical history significant for diabetes, hypertension, and dyslipidemia, as well as obesity, who was admitted to the hospital with congestive heart failure exacerbation as well as atrial fibrillation with rapid ventricular response. The atrial fibrillation is new to the patient. She underwent an echocardiogram and that revealed impaired LV function with EF between 40-45%. On follow-up with her today, she states she still short of breath. She still have bilateral lower extremities edema. The blood pressure has been on the low side. She still on Cardizem at 5 mg per hour. I am going to DC the Norvasc, DC the Cardizem, and increase the metoprolol to 50 mg by mouth twice a day. She still on heparin IV and we'll consider starting the patient on oral anticoagulation. Objective - Vital Signs Vital signs: Vital Signs Temp 98.4 F 06/15/18 08:00 Pulse 106 H 06/15/18 08:00 Resp 18 06/15/18 04:00 BP 102/55 06/15/18 08:00 Pulse Ox 95 06/15/18 08:00 Intake & Output 06/14/18 06/15/18 06/15/18 18:59 06:59 18:59 Intake Total 1245.933 443.1 480 Balance 1245.933 443.1 480 Weight 121 kg Intake: Intake, IV Titration 165.933 443.1 Amount Diltiazem 50 mg In Sodium 97.5 100 Chloride 0.9% 40 ml @ 10 MG/HR 10 mls/hr IV .Q5H CHARLY Rx#:[id number] Heparin Sod,Pork in 0.45% 68.433 343.1 NaCl 25,000 unit In 0.45 % NaCl 1 250ml.bag @ 8.16 UNITS/KG/HR 9.99 mls/hr IV .Q24H CHARLY Rx#: [id number] Oral 1080 480 Other: Voiding Method Toilet # Voids 3 # Bowel Movements 3 - Constitutional General appearance: Present: no acute distress - Respiratory Respiratory: bilateral: diminished - Cardiovascular Rhythm: irregularly irregular Heart sounds: normal: S1, S2 Abnormal Heart Sounds: Present: systolic murmur - Labs CBC & Chem 7: 06/13/18 09:30 06/15/18 03:27 Labs: Abnormal Lab Results - Last 24 Hours (Table) 06/14/18 06/14/18 06/14/18 Range/Units 16:42 20:20 21:07 APTT 39.8 H (22.0-30.0) sec Chloride (98-107) mmol/L Carbon Dioxide (22-30) mmol/L BUN (7-17) mg/dL Creatinine (0.52-1.04) mg/dL Glucose (74-99) mg/dL POC Glucose (mg/dL) 234 H 135 H (75-99) mg/dL 06/15/18 06/15/18 06/15/18 Range/Units 03:27 03:27 06:15 APTT 64.2 H (22.0-30.0) sec Chloride 109 H (98-107) mmol/L Carbon Dioxide 18 L (22-30) mmol/L BUN 39 H (7-17) mg/dL Creatinine 1.65 H (0.52-1.04) mg/dL Glucose 127 H (74-99) mg/dL POC Glucose (mg/dL) 107 H (75-99) mg/dL 06/15/18 Range/Units 11:49 APTT (22.0-30.0) sec Chloride (98-107) mmol/L Carbon Dioxide (22-30) mmol/L BUN (7-17) mg/dL Creatinine (0.52-1.04) mg/dL Glucose (74-99) mg/dL POC Glucose (mg/dL) 149 H (75-99) mg/dL Assessment and Plan Assessment: Assessment #1 atrial fibrillation with slightly uncontrolled heart rate. This is a new to the patient. #2 congestive heart failure exacerbation secondary to systolic dysfunction #3 multiple comorbid conditions including diabetes, hypertension, and dyslipidemia Plan #1 DC the Norvasc in view of the marginally low blood pressure #2 DC the Cardizem IV #3 increase the dose of metoprolol #4 continue IV Lasix #5 continue monitor the kidney function and electrolytes #6 follow-up with the patient
[2018-06-15 16:31] LABS: Glucose,Whole Blood 143 mg/dL (75-99)
[2018-06-15] MEDS: FUROSEMIDE 10 MG/ML 4 ML VIAL IV SCH ×2 (17:49→20:24)
[2018-06-15] MEDS: ATORVASTATIN 10 MG TAB PO SCH (20:24)
[2018-06-15] MEDS: METOPROLOL TARTRATE 50 MG TAB PO SCH (20:25)
[2018-06-15] MEDS: ACETAMINOPHEN TAB 325 MG TAB PO PRN (20:25)
[2018-06-15 20:40] LABS: Glucose,Whole Blood 109 mg/dL (75-99)
--- NOTE | 2018-06-16 02:26 | PN ---
PROGRESS NOTE DATE OF SERVICE: June 15, 2018. PRESENTING COMPLAINT: Short of breath. INTERVAL HISTORY: This patient I saw yesterday evening. Admitted with new onset atrial fibrillation with rapid ventricular rate, acute pulmonary edema, has been on IV Lasix. Renal function is creeping up. Does feel tired. Family is visiting. The patient does not like the hospital food. The patient had been on IV heparin. Medications adjusted by Cardiology. REVIEW OF SYSTEMS: Done for constitutional, cardiovascular, GI, pulmonary; relevant findings as above. CURRENT MEDICATIONS: Reviewed that include aspirin, Lipitor, IV Cardizem, IV Lasix, IV heparin, Zestril, Glucophage, Lopressor 50 mg b.i.d. EXAMINATION: VITAL SIGNS: Temperature 98.2, pulse 83, respiratory 18, blood pressure 157/81, pulse ox 97% on 2 L. GENERAL: Sitting on the edge of the bed, tired. Awake. EYES: Pupils equal. Conjunctivae normal. NECK JVD unable to assess. Mass not palpable. RESPIRATORY: Effort increased. Lungs, decreased breath sounds CARDIOVASCULAR: Heart sounds muffled. Some nonpitting edema. ABDOMEN: Soft, nontender. Liver and spleen not palpable. PSYCHIATRY: Alert and oriented x3. Mood and affect normal. INVESTIGATIONS: Potassium 4.7, BUN 39, creatinine 1.65, bicarb 18. Accu-Cheks are noted. ASSESSMENT: 1. New onset atrial fibrillation with rapid ventricular rate, now better controlled. 2. Acute pulmonary edema probably precipitated by uncontrolled atrial fibrillation. Doing better. 3. Essential hypertension. 4. Diabetes mellitus type 2 on oral hypoglycemics, uncontrolled with hypoglycemia. 5. Chronic fibromyalgia. 6. Sciatica. 7. Primary osteoarthritis. 8. Depression, not otherwise specified. 9. Chronic insomnia. 10.Morbid obesity BMI 49.4. 11.Chronic gait dysfunction does use a cane. 12.Acute renal failure prerenal from diuretics. PLAN: Discussed with Dr. Anton from Cardiology. Wishes to continue with IV Lasix for another 24 hours. Will keep a close eye on renal function. Other medications as being adjusted by Cardiology. We will add sodium bicarbonate for the metabolic acidosis. MMODL / IJN: [id number] /
[2018-06-16 04:15] LABS: Basophils % (A) 0 %; Eosinophils # (A) 0.3 k/uL (0-0.7); Eosinophils % (A) 3 %; HCT 29.9 % (34.0-46.0); Hypochromasia Slight; Lymphocytes # (A) 1.4 k/uL (1.0-4.8); Lymphocytes % (A) 15 %; MCH 27.5 pg (25.0-35.0); MCV 85.9 fL (80.0-100.0); Mean Platelet Volume 7.2; Monocytes # (A) 0.4 k/uL (0-1.0); Monocytes % (A) 4 %; Neutrophils % (A) 75 %; Platelet Count 231 k/uL (150-450); RBC 3.48 m/uL (3.80-5.40); RDW 15.2 % (11.5-15.5); WBC 9.3 k/uL (3.8-10.6)
[2018-06-16 04:17] LABS: HGB 9.6 gm/dL (11.4-16.0)
[2018-06-16 05:25] LABS: Calcium 8.8 mg/dL (8.4-10.2); Magnesium 2.3 mg/dL (1.6-2.3); Potassium 4.8 mmol/L (3.5-5.1)
[2018-06-16 05:56] LABS: Glucose,Whole Blood 94 mg/dL (75-99)
[2018-06-16] MEDS: INSULIN ASPART 100 UNIT/ML 1 ML 10 ML VIAL SQ SCH ×4 (05:58→21:35)
[2018-06-16] MEDS: metFORMIN 500 MG TAB PO SCH ×2 (07:05→16:48)
[2018-06-16] MEDS: glipiZIDE 10 MG TAB PO SCH (07:05)
[2018-06-16] MEDS: FUROSEMIDE 10 MG/ML 4 ML VIAL IV SCH ×2 (09:20→20:00)
[2018-06-16] MEDS: ETODOLAC 400 MG TAB PO SCH (09:20)
[2018-06-16] MEDS: VENLAFAXINE HCL 37.5 MG TAB PO SCH ×2 (09:20→22:40)
[2018-06-16] MEDS: MAGNESIUM OXIDE 400 MG TAB PO SCH ×2 (09:20→20:01)
[2018-06-16] MEDS: LISINOPRIL 20 MG TAB PO SCH (09:20)
[2018-06-16] MEDS: METOPROLOL TARTRATE 50 MG TAB PO SCH ×2 (09:20→20:01)
[2018-06-16] MEDS: LINAGLIPTIN 5 MG TABLET PO SCH (09:20)
[2018-06-16] MEDS: PREGABALIN 75 MG CAP PO SCH (09:20)
[2018-06-16] MEDS: SODIUM BICARBONATE TAB 650 MG TAB PO SCH ×3 (09:20→20:01)
[2018-06-16] MEDS: ASPIRIN 81 MG PO SCH (09:24)
[2018-06-16 11:46] LABS: Glucose,Whole Blood 61 mg/dL (75-99)
[2018-06-16 11:50] LABS: Glucose,Whole Blood 77 mg/dL (75-99)
--- NOTE | 2018-06-16 13:11 | CDI ---
Documentation Clarification Form Date: 06/16/2018 12:33:22 PM From: Kimberly Bradshaw RN, CCDS Admit Date: 06/13/2018 11:37:00 AM Patient Name: Amy Riley Visit Number: [id number] Discharge Date: ATTENTION: The Clinical Documentation Specialists (CDI) and [facility] Coding Staff appreciate your assistance in clarifying documentation. Please respond to the clarification below the line at the bottom and electronically sign. The CDI & [facility] Coding staff will review the response and follow-up if needed. Please note: Queries are made part of the Legal Health Record. If you have any questions, please contact the author of this message via ITS. Dr. Oscar Nava The patient presented with new onset atrial fibrillation with rapid ventricular rate. History/Risk Factors: Hypertension, Diabetes Mellitus, Hyperlipidemia, Fibromyalgia Clinical Indicators: Patient started feeling some intermittent palpitations and shortness of breath with exertion. She had some sharp chest pain, some increased edema to her feet. Vital signs on admission: 147/99 156 28 98.9 92 % RA EKG shows atrial fibrillation with rapid ventricular response at 160 beats a minute Lab findings: BNP 1320 Chest XR: Findings consistent with CHF exacerbation as there is cardiomegaly with small bilateral pleural effusions and moderate bilateral interstitial edema felt present. Treatment: Cardizem drip Lopressor PO Heparin drip Lasix IV Monitor Kidney function and electrolytes Consults Cardiology: Congestive heart failure exacerbation secondary to systolic dysfunction In your professional opinion, can you please further clarify acute pulmonary edema? With Heart disease or heart failure (Specified as Congestive heart failure with diastolic or systolic dysfunction, specify acute or chronic) Other, please specify Unable to determine (Last Revision: August 2017) addressed in progess note and dc summary MTDD
--- NOTE | 2018-06-16 14:05 | CDI ---
Documentation Clarification Form Date: 06/16/2018 1:37:07 PM From: Kimberly Bradshaw RN, CCDS Admit Date: 06/13/2018 11:37:00 AM Patient Name: Amy Riley Visit Number: [id number] Discharge Date: ATTENTION: The Clinical Documentation Specialists (CDI) and [facility] Coding Staff appreciate your assistance in clarifying documentation. Please respond to the clarification below the line at the bottom and electronically sign. The CDI & [facility] Coding staff will review the response and follow-up if needed. Please note: Queries are made part of the Legal Health Record. If you have any questions, please contact the author of this message via ITS. Dr. Rod Anton New onset Atrial Fibrillation is documented in the Emergency Department evaluation your consult and progress note. History/Risk Factors: Hypertension, Diabetes Mellitus Clinical Indicators: Present with complaints of intermittent palpitations and shortness of breath with exertion, sharp chest pain only lasting 1-2 seconds and increased edema to her feet. EKG/telemetry: Atrial fibrillation with rapid ventricular response at 160 beats a minute. Treatment: laboratory monitor Cardizem drip Heparin drip Lopressor PO Monitor PTT/INR ECHO In your professional opinion, can you please clarify the type of Atrial Fibrillation, if known? Paroxysmal Persistent Other, please specify Unable to determine (Last Revision: August 2017) MTDD
--- NOTE | 2018-06-16 15:44 | P.PN ---
Subjective Progress Note Date: 06/16/18 This is a pleasant 67-year-old female with history of hypertension, diabetes, hyperlipidemia, fibromyalgia, depression, who recently has been dealing with an upper respiratory infection since approximately Wednesday or so. She felt on Wednesday to be more congested, she also noticed herself to be significantly more short of breath. She also noticed palpitations in her chest which started on Wednesday or Wednesday off and on. She came to the emergency room for further evaluation. GN presentation here showed atrial fibrillation with a rapid ventricular response. Chest x-ray performed on admission showed findings consistent with congestive heart failure exacerbation, cardiomegaly, small bilateral pleural effusion and moderate bilateral interstitial edema. Blood pressure on arrival here 148/98, heart rate 156, temperature 98.9, 92% on room air. Blood pressure this morning 114/60 with a heart rate of 100, 93% on 3 L of oxygen. White blood cell count 12.4, hemoglobin 11.6, platelet count 288. Sodium 142, potassium 4.4, BUN 30 and creatinine 1.2, her BUN yesterday was 23 and creatinine 0.8. Blood glucose on arrival 255, Mag on arrival 1.3, 1.4 this morning. Troponin 0.012. BNP level 1320. At the time of my examination this morning, patient is sitting up in her chair at bedside. She does state that she feels significantly better than her presentation here. Denies palpitations at present although she continues to be in atrial fibrillation. She is currently on IV heparin and IV Cardizem. Patient did have a stress test, Anisa scan, performed here February 2017 which was negative for any reversible ischemia. 06/16/2018 Patient was seen and examined today, overall she does state that her breathing is improving. Blood pressure 102/60 with a heart rate in the 70s, 98% on 2 L of oxygen. She continues to be in atrial fibrillation, rate under much better control. Blood cell count 9.3, hemoglobin 9.6, platelet count 231. Sodium 144 , potassium 4.8, BUN 47, creatinine 1.7. Overall she is diuresing well although her weight is not reflective of this. We will discontinue the IV heparin and start the patient on Eliquis today. Check regarding coverage. Objective - Vital Signs Vital signs: Vital Signs Temp 98.4 F 06/16/18 08:00 Pulse 75 06/16/18 11:51 Resp 17 06/16/18 11:51 BP 102/65 06/16/18 11:51 Pulse Ox 98 06/16/18 11:51 Intake & Output 06/15/18 06/16/18 06/16/18 18:59 06:59 18:59 Intake Total 1020 730 360 Output Total 350 Balance 1020 380 360 Weight 121.5 kg Intake: IV 480 0.9. 320 Heparin Sod,Pork in 0.45% 160 NaCl 25,000 unit In 0.45 % NaCl 1 250ml.bag @ 8.16 UNITS/KG/HR 9.99 mls/hr IV .Q24H [facility] Rx#: [id number] Intake, IV Titration 300 250 Amount Diltiazem 50 mg In Sodium 50 Chloride 0.9% 40 ml @ 10 MG/HR 10 mls/hr IV .Q5H [facility] Rx#:[id number] Heparin Sod,Pork in 0.45% 250 250 NaCl 25,000 unit In 0.45 % NaCl 1 250ml.bag @ 8.16 UNITS/KG/HR 9.99 mls/hr IV .Q24H [facility] Rx#: [id number] Oral 720 360 Output: Urine 350 Other: Voiding Method Toilet Toilet # Voids 2 - Exam PHYSICAL EXAMINATION: GENERAL: 67-year-old female in no acute distress at the time of my examination HEENT: Head is atraumatic, normocephalic. Pupils equal, round. Sclera anicteric. Conjunctiva are clear. Mucous membranes of the mouth are moist. Neck is supple. There is no elevated jugular venous pressure. No carotid bruit is heard. HEART EXAMINATION: Heart S1 and S2 irregularly irregular CHEST EXAMINATION: Lungs reveal diminished air entry to bilateral bases. ABDOMEN: Soft, obese, nontender. Bowel sounds are heard. No organomegaly noted. EXTREMITIES: 2+ peripheral pulses with trace evidence of peripheral edema and no calf tenderness noted. NEUROLOGIC patient is awake, alert and oriented 3. - Labs CBC & Chem 7: 06/16/18 03:53 06/16/18 03:48 Labs: Abnormal Lab Results - Last 24 Hours (Table) 06/15/18 06/15/18 06/16/18 Range/Units 16:19 20:39 03:48 RBC (3.80-5.40) m/uL Hgb (11.4-16.0) gm/dL Hct (34.0-46.0) % APTT (22.0-30.0) sec Chloride 109 H (98-107) mmol/L BUN 47 H (7-17) mg/dL Creatinine 1.70 H (0.52-1.04) mg/dL POC Glucose (mg/dL) 143 H 109 H (75-99) mg/dL 06/16/18 06/16/18 06/16/18 Range/Units 03:53 03:53 11:32 RBC 3.48 L (3.80-5.40) m/uL Hgb 9.6 L D (11.4-16.0) gm/dL Hct 29.9 L (34.0-46.0) % APTT 55.1 H (22.0-30.0) sec Chloride (98-107) mmol/L BUN (7-17) mg/dL Creatinine (0.52-1.04) mg/dL POC Glucose (mg/dL) 61 L (75-99) mg/dL Assessment and Plan Plan: Assessment and plan #1 atrial fibrillation with rapid ventricular response, appears to be of new onset. Persistent. #2 congestive heart failure, likely exacerbated by A. fib with RVR, diastolic acute on chronic #3 hypertension #4 diabetes #5 hyperlipidemia #6 recent upper respiratory infection Plan Echocardiogram with Doppler study was performed which revealed an ejection fraction of 45-50%. We will continue IV Lasix. Discontinue IV heparin and start the patient on Eliquis. Check regarding coverage for Eliquis. Continue to monitor intake and output along with daily weights and daily lytes BUN and creatinine. DNP note has been reviewed, I agree with a documented findings and plan of care. Patient was seen and examined.
[2018-06-16 16:25] LABS: Glucose,Whole Blood 117 mg/dL (75-99)
[2018-06-16] MEDS: ATORVASTATIN 10 MG TAB PO SCH (20:00)
[2018-06-16] MEDS: APIXABAN 5 MG TAB PO SCH (20:00)
[2018-06-16 21:23] LABS: Glucose,Whole Blood 89 mg/dL (75-99)
--- NOTE | 2018-06-16 23:06 | PN ---
PROGRESS NOTE DATE OF SERVICE: 06/16/2018. PRESENTING COMPLAINT: Tired. INTERVAL HISTORY: Patient presented with new onset atrial fibrillation, rapid ventricular rate. Rate is still running a bit high. Also had acute pulmonary edema, has been on IV Lasix. The patient also is in acute renal failure from diuresis. Did rest a bit more. Appetite is getting better. Has family visiting. REVIEW OF SYSTEMS: Done for constitutional, cardiovascular, GI, pulmonary; relevant findings as above. CURRENT MEDICATIONS: Reviewed, that include Eliquis, IV heparin was discontinued, IV Lasix, Lopressor 50 mg b.i.d. EXAMINATION: VITAL SIGNS: Temperature 97.2, pulse 84, respirations 16, blood pressure 125/86, pulse ox 97% on 2 L. GENERAL APPEARANCE: Sitting up, awake. EYES: Pupils equal. Conjunctivae normal. NECK: JVD unable to assess. Mass not palpable. Respiratory effort increased. LUNGS: Decreased breath sounds. CARDIOVASCULAR: Heart sounds muffled. Some edema. ABDOMEN: Soft, nontender. Liver and spleen not palpable. PSYCHIATRY: Alert and oriented x3. Mood and affect normal. INVESTIGATIONS: Accu-Cheks 61 and 77. White count 9.3, hemoglobin 9.6, potassium 4.8, BUN 47, creatinine 1.70. ASSESSMENT: 1. New onset atrial fibrillation with rapid ventricular rate, some improvement. 2. Acute pulmonary edema, possibly precipitated by atrial fibrillation. 3. Essential hypertension. 4. Diabetes mellitus type 2 on oral hypoglycemics, uncontrolled with hypoglycemia. 5. Chronic fibromyalgia. 6. Sciatica. 7. Primary osteoarthritis. 8. Depression, not otherwise specified. 9. Chronic insomnia. 10.Morbid obesity, BMI 49.4. 11.Chronic gait dysfunction, does use a cane. 12.Acute renal failure, prerenal from diuretics, some worsening. 13.Metabolic acidosis from acute renal failure. PLAN: Discussed with Dr. Anton. He will continue with IV Lasix for right now. Keep a close eye on renal function. The patient's IV heparin has been discontinued. Started on Eliquis. MMODL / IJN: [id number] /
[2018-06-17 06:00] LABS: Glucose,Whole Blood 110 mg/dL (75-99)
[2018-06-17] MEDS: ACETAMINOPHEN TAB 325 MG TAB PO PRN ×2 (06:05→23:13)
[2018-06-17] MEDS: INSULIN ASPART 100 UNIT/ML 1 ML 10 ML VIAL SQ SCH ×4 (06:06→21:01)
[2018-06-17] MEDS: metFORMIN 500 MG TAB PO SCH ×2 (06:33→17:36)
[2018-06-17] MEDS: VENLAFAXINE HCL 37.5 MG TAB PO SCH ×2 (08:31→21:00)
[2018-06-17] MEDS: SODIUM BICARBONATE TAB 650 MG TAB PO SCH ×3 (08:31→21:00)
[2018-06-17] MEDS: METOPROLOL TARTRATE 50 MG TAB PO SCH ×3 (08:31→21:00)
[2018-06-17] MEDS: MAGNESIUM OXIDE 400 MG TAB PO SCH ×2 (08:31→21:00)
[2018-06-17] MEDS: PREGABALIN 75 MG CAP PO SCH (08:31)
[2018-06-17] MEDS: LISINOPRIL 20 MG TAB PO SCH (08:31)
[2018-06-17] MEDS: APIXABAN 5 MG TAB PO SCH ×2 (08:31→21:00)
[2018-06-17] MEDS: ETODOLAC 400 MG TAB PO SCH (08:31)
[2018-06-17] MEDS: ASPIRIN 81 MG PO SCH (08:32)
[2018-06-17] MEDS: FUROSEMIDE 10 MG/ML 4 ML VIAL IV SCH ×2 (08:32→21:00)
[2018-06-17] MEDS: LINAGLIPTIN 5 MG TABLET PO SCH (08:32)
[2018-06-17 08:56] LABS: T4, Free (Free Thyroxine) 1.18 ng/dL (0.78-2.19)
--- NOTE | 2018-06-17 10:10 | P.PN ---
Subjective Progress Note Date: 06/17/18 Principal diagnosis: CHF/atrial fibrillation This is a pleasant 67-year-old female patient with a past medical history significant for diabetes, hypertension, and dyslipidemia, as well as obesity, who was admitted to the hospital with congestive heart failure exacerbation as well as atrial fibrillation with rapid ventricular response. The atrial fibrillation is new to the patient. She underwent an echocardiogram and that revealed impaired LV function with EF between 40-45%. On follow-up with the patient today, June 172018, she's feeling better in terms of shortness of breath but she continues to have bilateral lower except his edema. She continues to be on Lasix IV. The creatinine continues to be stable. She continues to be in atrial fibrillation with slightly uncontrolled heart rate and I am going to increase the dose of metoprolol. Beside that she continues to be on oral anticoagulation. Objective - Vital Signs Vital signs: Vital Signs Temp 98.2 F 06/17/18 08:25 Pulse 106 H 06/17/18 08:25 Resp 16 06/17/18 09:14 BP 111/52 06/17/18 08:25 Pulse Ox 94 L 06/17/18 09:14 Intake & Output 06/16/18 06/17/18 06/17/18 18:59 06:59 18:59 Intake Total 480 400 Balance 480 400 Weight 121.7 kg Intake: Oral 480 400 Other: Voiding Method Toilet Toilet - Constitutional General appearance: Present: no acute distress - Respiratory Respiratory: bilateral: CTA - Cardiovascular Rhythm: irregularly irregular Heart sounds: normal: S1, S2 - Labs CBC & Chem 7: 06/16/18 03:53 06/17/18 06:30 Labs: Abnormal Lab Results - Last 24 Hours (Table) 06/16/18 06/16/18 06/17/18 Range/Units 11:32 16:23 05:59 BUN (7-17) mg/dL Creatinine (0.52-1.04) mg/dL Glucose (74-99) mg/dL POC Glucose (mg/dL) 61 L 117 H 110 H (75-99) mg/dL TSH (0.465-4.680) mIU/L 06/17/18 Range/Units 06:30 BUN 38 H (7-17) mg/dL Creatinine 1.21 H (0.52-1.04) mg/dL Glucose 102 H (74-99) mg/dL POC Glucose (mg/dL) (75-99) mg/dL TSH 0.422 L (0.465-4.680) mIU/L Assessment and Plan Assessment: Assessment #1 atrial fibrillation with slightly uncontrolled heart rate. This is a new to the patient. #2 congestive heart failure exacerbation secondary to systolic dysfunction #3 multiple comorbid conditions including diabetes, hypertension, and dyslipidemia Plan #1 continue Lasix IV for additional 24 hours #2 continue monitor the kidney function and electrolytes #3 increase the dose of metoprolol #4 continue oral anticoagulation #5 follow-up with the patient
[2018-06-17 11:34] LABS: Glucose,Whole Blood 130 mg/dL (75-99)
[2018-06-17 16:32] LABS: Glucose,Whole Blood 245 mg/dL (75-99)
[2018-06-17 20:57] LABS: Glucose,Whole Blood 177 mg/dL (75-99)
[2018-06-17] MEDS: ATORVASTATIN 10 MG TAB PO SCH (21:00)
--- NOTE | 2018-06-17 22:55 | PN ---
PROGRESS NOTE DATE OF SERVICE: 06/17/2018. PRESENTING COMPLAINT: Tired. INTERVAL HISTORY: Patient presented with new onset atrial fibrillation with rapid ventricular rate. Ejection fraction is 45-50 percent. Heart rate is running a bit on the higher side. Has been making good urine. There is some prerenal acute renal failure. Edema still present. Overall feeling better. 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 The patient's hypoglycemic with glyburide was held back. The patient has got family visiting today. REVIEW OF SYSTEMS: Done for constitutional, cardiovascular, GI, pulmonary; relevant findings as above. CURRENT MEDICATIONS: Reviewed, that include Eliquis, aspirin, IV 40 every 12h, Zestril 20 mg, Lopressor 50 mg t.i.d., Lyrica. PHYSICAL EXAMINATION: Temperature 98.4, pulse 106, respirations 16, blood pressure 108/64, pulse ox 92 percent on room air. GENERAL APPEARANCE: Sitting at the edge of the bed, comfortable. EYES: Pupils equal. Conjunctivae normal. NECK: JVD unable to assess. Mass not palpable. RESPIRATORY: Effort increased. LUNGS: Fair air entry. CARDIOVASCULAR: Heart sounds muffled. Some edema. ABDOMEN: Distended, soft. Liver and spleen not palpable. PSYCHIATRY: Alert and oriented x3. Mood and affect normal. INVESTIGATIONS: Potassium 5, BUN 38, creatinine 1.21. TSH 0.422, free T4 1.1. ASSESSMENT: 1. New-onset atrial fibrillation with rapid ventricular rate with some better control. 2. Acute congestive heart failure exacerbation from diastolic dysfunction, ejection fraction 45% to 50%, precipitated by atrial fibrillation. 3. Essential hypertension. 4. Diabetes mellitus type 2, on oral hypoglycemic, uncontrolled with hypoglycemia. 5. Chronic fibromyalgia. 6. Sciatica. 7. Primary osteoarthritis. 8. Depression, not otherwise specified. 9. Chronic insomnia. 10.Morbid obesity BMI 49.4. 11.Chronic gait dysfunction, does use a cane. 12.Acute renal failure prerenal from diuretics, improving. 13.Metabolic acidosis from acute renal failure. PLAN: Care was discussed with the patient and family members at the bedside. Discussed with Dr. Anton. Another 24 hours of IV Lasix. The patient is already on Eliquis. The patient's TSH is low, probably from sick euthyroid. Clinically patient is not hyperthyroid Hence, disregard this and repeat the labs in about 3 weeks in terms of thyroid function. MMODL / IJN: [id number] /
[2018-06-18 06:08] LABS: Glucose,Whole Blood 142 mg/dL (75-99)
[2018-06-18] MEDS: metFORMIN 500 MG TAB PO SCH ×2 (06:41→21:20)
[2018-06-18] MEDS: INSULIN ASPART 100 UNIT/ML 1 ML 10 ML VIAL SQ SCH ×4 (06:41→21:58)
[2018-06-18 07:41] LABS: Calcium 9.4 mg/dL (8.4-10.2); Potassium 4.5 mmol/L (3.5-5.1)
[2018-06-18] MEDS: VENLAFAXINE HCL 37.5 MG TAB PO SCH ×2 (08:34→22:46)
[2018-06-18] MEDS: APIXABAN 5 MG TAB PO SCH ×2 (08:34→21:58)
[2018-06-18] MEDS: METOPROLOL TARTRATE 50 MG TAB PO SCH ×2 (08:35→21:57)
[2018-06-18] MEDS: LISINOPRIL 20 MG TAB PO SCH (08:35)
[2018-06-18] MEDS: MAGNESIUM OXIDE 400 MG TAB PO SCH ×2 (08:35→21:58)
[2018-06-18] MEDS: SODIUM BICARBONATE TAB 650 MG TAB PO SCH ×3 (08:35→21:58)
[2018-06-18] MEDS: PREGABALIN 75 MG CAP PO SCH (08:35)
[2018-06-18] MEDS: FUROSEMIDE 10 MG/ML 4 ML VIAL IV SCH ×2 (08:35→21:58)
[2018-06-18] MEDS: LINAGLIPTIN 5 MG TABLET PO SCH (08:35)
[2018-06-18] MEDS: ASPIRIN 81 MG PO SCH (08:35)
[2018-06-18] MEDS: ETODOLAC 400 MG TAB PO SCH (08:36)
--- NOTE | 2018-06-18 11:53 | P.PN ---
Subjective Progress Note Date: 06/18/18 Principal diagnosis: CHF/atrial fibrillation This is a pleasant 67-year-old female patient with a past medical history significant for diabetes, hypertension, and dyslipidemia, as well as obesity, who was admitted to the hospital with congestive heart failure exacerbation as well as atrial fibrillation with rapid ventricular response. She underwent an echocardiogram and that revealed impaired LV function with EF between 40-45%. On follow-up with the patient today, 06/18/2018, she stated that she is more short of breath this morning. She continues to have bilateral lower extremities pitting edema. The creatinine continues to be stable. She continues to be on Lasix IV. She is also tachycardic with heart rate around 90- 100 beats per minute. I suggested to keep the patient on Lasix IV for additional 24 hours, continue monitor the kidney function and electrolytes, and increase the dose of metoprolol. Objective - Vital Signs Vital signs: Vital Signs Temp 98.2 F 06/18/18 08:30 Pulse 113 H 06/18/18 08:30 Resp 18 06/18/18 08:30 BP 123/69 06/18/18 08:30 Pulse Ox 93 L 06/18/18 08:30 Intake & Output 06/17/18 06/18/18 06/18/18 18:59 06:59 18:59 Intake Total 580 240 Balance 580 240 Intake: Oral 580 240 Other: Voiding Method Toilet Toilet - Constitutional General appearance: Present: no acute distress - Respiratory Respiratory: bilateral: CTA - Cardiovascular Heart sounds: normal: S1, S2 - Labs CBC & Chem 7: 06/16/18 03:53 06/18/18 06:51 Labs: Abnormal Lab Results - Last 24 Hours (Table) 06/17/18 06/17/18 06/17/18 Range/Units 11:32 16:30 20:56 Carbon Dioxide (22-30) mmol/L BUN (7-17) mg/dL Creatinine (0.52-1.04) mg/dL Glucose (74-99) mg/dL POC Glucose (mg/dL) 130 H 245 H 177 H (75-99) mg/dL 06/18/18 06/18/18 Range/Units 06:07 06:51 Carbon Dioxide 33 H (22-30) mmol/L BUN 36 H (7-17) mg/dL Creatinine 1.12 H (0.52-1.04) mg/dL Glucose 144 H (74-99) mg/dL POC Glucose (mg/dL) 142 H (75-99) mg/dL Assessment and Plan Assessment: Assessment #1 atrial fibrillation with slightly uncontrolled heart rate. This is a new to the patient. #2 congestive heart failure exacerbation secondary to systolic dysfunction #3 multiple comorbid conditions including diabetes, hypertension, and dyslipidemia Plan #1 continue Lasix IV for additional 24 hours #2 continue monitor the kidney function and electrolytes #3 increase the dose of metoprolol #4 continue oral anticoagulation #5 follow-up with the patient
[2018-06-18 11:56] LABS: Glucose,Whole Blood 194 mg/dL (75-99)
[2018-06-18 18:46] LABS: Glucose,Whole Blood 259 mg/dL (75-99)
--- NOTE | 2018-06-18 20:19 | PN ---
PROGRESS NOTE DATE OF SERVICE: June 18, 2018. PRESENTING COMPLAINT: Tired. INTERVAL HISTORY: This patient presented with new onset atrial fibrillation rapid ventricular rate, EF 45- 50 percent and also congestive heart failure. Remains on IV Lasix. Creatinine has been coming down. Edema is coming down. Heart rate is just up running about 100. Tolerating a diet. REVIEW OF SYSTEMS: Done for constitutional, cardiovascular, GI, pulmonary; relevant findings as above. CURRENT MEDICATIONS: Reviewed that include IV Lasix 40 mg q.12., Zestril and Lopressor. PHYSICAL EXAMINATION: VITAL SIGNS: Temperature 98.2, pulse 97, respiratory 18, blood pressure 100/59 pulse 92 percent on room air. GENERAL APPEARANCE: Sitting at edge of the bed, breathing comfortably. EYES: Pupils equal. Conjunctivae normal. NECK: JVD unable to assess. Mass not palpable. RESPIRATORY: Effort increased. LUNGS: Fair entry. CARDIOVASCULAR: Heart sounds irregular. Some edema. ABDOMEN: Distended, soft. Liver and spleen not palpable. PSYCHIATRY: Alert and oriented x3. Mood and affect normal. INVESTIGATIONS: Potassium 4.5, BUN 36, creatinine 1.12. Telemetry strip reviewed. ASSESSMENT: 1. New onset atrial fibrillation rapid ventricular rate somewhat better controlled. Still running above 100. 2. Acute congestive heart failure exacerbation from diastolic dysfunction EF 45-50 percent, made worse by atrial fibrillation. 3. Essential hypertension. 4. Diabetes mellitus, on oral hypoglycemic uncontrolled with hyperglycemia, now come up, blood sugars come up. Also, uncontrolled with hyperglycemia. 5. Chronic fibromyalgia. 6. Sciatica. 7. Primary osteoarthritis. 8. Depression, not otherwise specified. 9. Chronic insomnia. 10.Morbid obesity BMI 49.4. 11.Chronic gait dysfunction. Does use a cane. 12.Acute renal prerenal from diuretics. Continues to improve. 13.Metabolic acidosis from acute renal failure. PLAN: Spoke to Dr. Anton. Spoke with the patient. Overall, patient is doing better. Continue current medication and treatment plan. Probably another 24 hours in the hospital. MMODL / IJN: [id number] /
[2018-06-18 21:04] LABS: Glucose,Whole Blood 187 mg/dL (75-99)
[2018-06-18] MEDS: ATORVASTATIN 10 MG TAB PO SCH (21:58)
[2018-06-18] MEDS: glipiZIDE 5 MG TAB PO SCH (21:58)
[2018-06-19 05:42] LABS: Glucose,Whole Blood 112 mg/dL (75-99)
[2018-06-19] MEDS: INSULIN ASPART 100 UNIT/ML 1 ML 10 ML VIAL SQ SCH ×4 (06:05→20:59)
[2018-06-19 06:23] VITALS: RESP 18
[2018-06-19] MEDS: glipiZIDE 5 MG TAB PO SCH (07:03)
[2018-06-19] MEDS: metFORMIN 500 MG TAB PO SCH ×2 (07:03→17:17)
[2018-06-19 08:18] LABS: Calcium 9.8 mg/dL (8.4-10.2); Magnesium 1.5 mg/dL (1.6-2.3); Potassium 4.3 mmol/L (3.5-5.1)
[2018-06-19] MEDS: METOPROLOL TARTRATE 50 MG TAB PO SCH (08:28)
[2018-06-19] MEDS: VENLAFAXINE HCL 37.5 MG TAB PO SCH (08:28)
[2018-06-19] MEDS: ETODOLAC 400 MG TAB PO SCH (08:28)
[2018-06-19] MEDS: APIXABAN 5 MG TAB PO SCH ×2 (08:28→20:56)
[2018-06-19] MEDS: PREGABALIN 75 MG CAP PO SCH (08:28)
[2018-06-19] MEDS: LINAGLIPTIN 5 MG TABLET PO SCH (08:28)
[2018-06-19] MEDS: FUROSEMIDE 10 MG/ML 4 ML VIAL IV SCH ×2 (08:29→20:56)
[2018-06-19] MEDS: MAGNESIUM OXIDE 400 MG TAB PO SCH ×2 (08:29→20:56)
[2018-06-19] MEDS: LISINOPRIL 20 MG TAB PO SCH (08:29)
[2018-06-19] MEDS: SODIUM BICARBONATE TAB 650 MG TAB PO SCH ×3 (08:29→20:56)
[2018-06-19] MEDS: ASPIRIN 81 MG PO SCH (08:29)
[2018-06-19] MEDS: MAGNESIUM SULFATE-D5W PMX 1 GM in DEXTROSE/WATER 1 100ML.BAG IVPB SCH ×2 (10:18→11:39)
[2018-06-19 11:16] LABS: Glucose,Whole Blood 183 mg/dL (75-99)
--- NOTE | 2018-06-19 11:22 | P.PN ---
Subjective Progress Note Date: 06/19/18 Principal diagnosis: CHF/atrial fibrillation This is a pleasant 67-year-old female patient with a past medical history significant for diabetes, hypertension, and dyslipidemia, as well as obesity, who was admitted to the hospital with congestive heart failure exacerbation as well as atrial fibrillation with rapid ventricular response. She underwent an echocardiogram and that revealed impaired LV function with EF between 40-45%. On follow-up with the patient today, 06/19/2018, she is feeling better in terms of shortness of breath and the lower extent is [place] has improved. The creatinine continues to be stable patient continues to be on Lasix IV. She continues to be in atrial fibrillation with uncontrolled heart rate and I would increase the dose of metoprolol to 75 mg by mouth 3 times a day. Down the line , the patient need to be ruled out for obstructive sleep apnea. Also she might benefit from cardioversion. Objective - Vital Signs Vital signs: Vital Signs Temp 98.1 F 06/19/18 08:43 Pulse 103 H 06/19/18 08:43 Resp 18 06/19/18 08:43 BP 128/93 06/19/18 08:43 Pulse Ox 95 06/19/18 08:43 Intake & Output 06/18/18 06/19/18 06/19/18 18:59 06:59 18:59 Intake Total 240 240 Balance 240 240 Intake: Oral 240 240 - Constitutional General appearance: Present: no acute distress - Respiratory Respiratory: bilateral: CTA - Cardiovascular Rhythm: irregularly irregular Heart sounds: normal: S1, S2 - Labs CBC & Chem 7: 06/16/18 03:53 06/19/18 06:00 Labs: Abnormal Lab Results - Last 24 Hours (Table) 06/18/18 06/18/18 06/18/18 Range/Units 11:40 15:56 21:03 Carbon Dioxide (22-30) mmol/L BUN (7-17) mg/dL Creatinine (0.52-1.04) mg/dL Glucose (74-99) mg/dL POC Glucose (mg/dL) 194 H 259 H 187 H (75-99) mg/dL Magnesium (1.6-2.3) mg/dL 06/19/18 06/19/18 06/19/18 Range/Units 05:41 06:00 11:14 Carbon Dioxide 34 H (22-30) mmol/L BUN 32 H (7-17) mg/dL Creatinine 1.07 H (0.52-1.04) mg/dL Glucose 109 H (74-99) mg/dL POC Glucose (mg/dL) 112 H 183 H (75-99) mg/dL Magnesium 1.5 L (1.6-2.3) mg/dL Assessment and Plan Assessment: Assessment #1 atrial fibrillation with slightly uncontrolled heart rate. This is a new to the patient. #2 congestive heart failure exacerbation secondary to systolic dysfunction #3 multiple comorbid conditions including diabetes, hypertension, and dyslipidemia Plan #1 continue Lasix IV for additional 24 hours #2 continue monitor the kidney function and electrolytes #3 increase the dose of metoprolol #4 continue oral anticoagulation #5 follow-up with the patient
[2018-06-19] MEDS: METOPROLOL TARTRATE 25 MG TAB PO SCH ×2 (15:22→20:56)
[2018-06-19 16:13] LABS: Glucose,Whole Blood 198 mg/dL (75-99)
[2018-06-19 20:54] LABS: Glucose,Whole Blood 245 mg/dL (75-99)
[2018-06-19] MEDS: ATORVASTATIN 10 MG TAB PO SCH (20:56)
--- NOTE | 2018-06-20 00:01 | PN ---
PROGRESS NOTE DATE OF SERVICE: 06/19/2018. PRESENTING COMPLAINT: Tired. INTERVAL HISTORY: The patient presented with new onset atrial fibrillation rapid ventricular rate. EF of 45 to 50 percent. CHF. Is on IV Lasix. Heart rate was up this morning. We increased the Lopressor to 75 mg 3 times a day. Overall, patient is doing better, tolerating a diet. Did rest well. REVIEW OF SYSTEMS: Done for constitutional, cardiovascular, GI, pulmonary; relevant findings as above. CURRENT MEDICATIONS: Reviewed, that include IV Lasix 40 every 12, Lopressor 75 mg p.o. t.i.d. EXAMINATION: Temperature 97.2, pulse 77, respiratory rate 18, blood pressure 100/61, pulse ox 92 percent room air. GENERAL APPEARANCE: Sitting up, more comfortable. EYES: Pupils equal. Conjunctivae normal. NECK: JVD unable to assess. Mass not palpable. Respiratory effort normal. LUNGS: Improved air entry. CARDIOVASCULAR: Heart sounds irregular. Decreased edema. ABDOMEN: Soft, nontender. Liver and spleen not palpable. PSYCHIATRY: Alert and oriented x3. Mood and affect normal. INVESTIGATIONS: BUN 32, creatinine 1.07, bicarb 34. Accu-Cheks are noted. Magnesium 1.5. ASSESSMENT: 1. New-onset atrial fibrillation with rapid ventricular rate, better controlled later in the day today. 2. Acute congestive heart failure from diastolic dysfunction, EF 45 to 50 percent. 3. Atrial fibrillation much improved. 4. Essential hypertension. 5. Status post oral hypoglycemic uncontrolled with hyperglycemia and hypoglycemia. 6. Chronic fibromyalgia. 7. Sciatica. 8. Primary osteoarthritis. 9. Depression, not otherwise specified. 10.Chronic insomnia. 11.Morbid obesity BMI 49.4. 12.Chronic gait dysfunction. Does use a cane. 13.Acute renal failure, prerenal from diuretics, much improved. 14.Metabolic acidosis from renal failure. PLAN: Patient's dose of Lopressor was increased to 75 mg 3 times a day. Today the patient's heart rate is well controlled. The patient should be able to switched over to p.o. Lasix tomorrow morning. Hopefully can then be discharged. We will also DC patient's bicarb supplement. MMODL / IJN: [id number] /
[2018-06-20 06:03] LABS: Glucose,Whole Blood 178 mg/dL (75-99)
[2018-06-20 06:56] LABS: Calcium 9.7 mg/dL (8.4-10.2); Magnesium 1.8 mg/dL (1.6-2.3); Potassium 4.2 mmol/L (3.5-5.1)
[2018-06-20] MEDS ORDERED: glipiZIDE 5 MG TAB PO SCH (09:00)
[2018-06-20] MEDS ORDERED: VENLAFAXINE HCL 37.5 MG TAB PO SCH (09:00)
[2018-06-20] MEDS: ASPIRIN 81 MG PO SCH (10:05)
[2018-06-20] MEDS: MAGNESIUM OXIDE 400 MG TAB PO SCH (10:05)
[2018-06-20] MEDS: PREGABALIN 75 MG CAP PO SCH (10:05)
[2018-06-20] MEDS: LINAGLIPTIN 5 MG TABLET PO SCH (10:06)
[2018-06-20] MEDS: metFORMIN 500 MG TAB PO SCH (10:06)
[2018-06-20] MEDS: APIXABAN 5 MG TAB PO SCH (10:06)
[2018-06-20] MEDS: LISINOPRIL 20 MG TAB PO SCH (10:06)
[2018-06-20] MEDS: METOPROLOL TARTRATE 25 MG TAB PO SCH ×2 (10:06→16:30)
[2018-06-20] MEDS: ETODOLAC 400 MG TAB PO SCH (10:07)
[2018-06-20] MEDS: FUROSEMIDE 10 MG/ML 4 ML VIAL IV SCH (10:08)
[2018-06-20] MEDS: INSULIN ASPART 100 UNIT/ML 1 ML 10 ML VIAL SQ SCH ×2 (10:08→12:34)
[2018-06-20 11:45] LABS: Glucose,Whole Blood 174 mg/dL (75-99)
--- NOTE | 2018-06-20 12:17 | P.PN ---
Subjective Progress Note Date: 06/20/18 This is a pleasant 67-year-old female with history of hypertension, diabetes, hyperlipidemia, fibromyalgia, depression, who recently has been dealing with an upper respiratory infection since approximately Wednesday or so. She felt on Wednesday to be more congested, she also noticed herself to be significantly more short of breath. She also noticed palpitations in her chest which started on Wednesday or Wednesday off and on. She came to the emergency room for further evaluation. GN presentation here showed atrial fibrillation with a rapid ventricular response. Chest x-ray performed on admission showed findings consistent with congestive heart failure exacerbation, cardiomegaly, small bilateral pleural effusion and moderate bilateral interstitial edema. Blood pressure on arrival here 148/98, heart rate 156, temperature 98.9, 92% on room air. Blood pressure this morning 114/60 with a heart rate of 100, 93% on 3 L of oxygen. White blood cell count 12.4, hemoglobin 11.6, platelet count 288. Sodium 142, potassium 4.4, BUN 30 and creatinine 1.2, her BUN yesterday was 23 and creatinine 0.8. Blood glucose on arrival 255, Mag on arrival 1.3, 1.4 this morning. Troponin 0.012. BNP level 1320. At the time of my examination this morning, patient is sitting up in her chair at bedside. She does state that she feels significantly better than her presentation here. Denies palpitations at present although she continues to be in atrial fibrillation. She is currently on IV heparin and IV Cardizem. Patient did have a stress test, Anisa scan, performed here February 2017 which was negative for any reversible ischemia. 06/16/2018 Patient was seen and examined today, overall she does state that her breathing is improving. Blood pressure 102/60 with a heart rate in the 70s, 98% on 2 L of oxygen. She continues to be in atrial fibrillation, rate under much better control. Blood cell count 9.3, hemoglobin 9.6, platelet count 231. Sodium 144 , potassium 4.8, BUN 47, creatinine 1.7. Overall she is diuresing well although her weight is not reflective of this. We will discontinue the IV heparin and start the patient on Eliquis today. Check regarding coverage. 06/20/2018 Patient was seen and examined this morning, doing much better overall. Hemodynamically stable. Blood pressure 118/68, heart rate in the 80s, 95% on room air. Sodium 139, potassium 4.2, BUN 33 and creatinine 1.1. Magnesium 1.8. We will discontinue the IV Lasix today and start the patient on oral diuretics. From our perspective she may be able to be discharged home. Objective - Vital Signs Vital signs: Vital Signs Temp 98.2 F 06/20/18 04:00 Pulse 90 06/20/18 04:00 Resp 18 06/20/18 04:00 BP 118/69 06/20/18 04:00 Pulse Ox 95 06/20/18 04:00 Intake & Output 06/19/18 06/20/18 06/20/18 18:59 06:59 18:59 Intake Total 720 240 Output Total 700 Balance 720 -700 240 Weight 116.4 kg Intake: Oral 720 240 Output: Urine 700 Other: Voiding Method Toilet # Voids 1 - Exam PHYSICAL EXAMINATION: GENERAL: 67-year-old female in no acute distress at the time of my examination HEENT: Head is atraumatic, normocephalic. Pupils equal, round. Sclera anicteric. Conjunctiva are clear. Mucous membranes of the mouth are moist. Neck is supple. There is no elevated jugular venous pressure. No carotid bruit is heard. HEART EXAMINATION: Heart S1 and S2 irregularly irregular CHEST EXAMINATION: Lungs reveal improvement in air entry to bilateral bases. ABDOMEN: Soft, obese, nontender. Bowel sounds are heard. No organomegaly noted. EXTREMITIES: 2+ peripheral pulses with trace evidence of peripheral edema and no calf tenderness noted. NEUROLOGIC patient is awake, alert and oriented 3. - Labs CBC & Chem 7: 06/16/18 03:53 06/20/18 05:31 Labs: Abnormal Lab Results - Last 24 Hours (Table) 06/19/18 06/19/18 06/20/18 Range/Units 16:11 20:49 05:31 Carbon Dioxide 31 H (22-30) mmol/L BUN 33 H (7-17) mg/dL Creatinine 1.17 H (0.52-1.04) mg/dL Glucose 165 H (74-99) mg/dL POC Glucose (mg/dL) 198 H 245 H (75-99) mg/dL 06/20/18 06/20/18 Range/Units 06:02 11:39 Carbon Dioxide (22-30) mmol/L BUN (7-17) mg/dL Creatinine (0.52-1.04) mg/dL Glucose (74-99) mg/dL POC Glucose (mg/dL) 178 H 174 H (75-99) mg/dL Assessment and Plan Plan: Assessment and plan #1 atrial fibrillation with rapid ventricular response, appears to be of new onset. Persistent. #2 congestive heart failure, likely exacerbated by A. fib with RVR, diastolic acute on chronic #3 hypertension #4 diabetes #5 hyperlipidemia #6 recent upper respiratory infection Plan Echocardiogram with Doppler study was performed which revealed an ejection fraction of 45-50%. We will discontinue the IV Lasix today and start the patient on oral diuretics. From our perspective she may be able to be discharged home today. Follow-up appointment in the office post discharge. DNP note has been reviewed, I agree with a documented findings and plan of care. Patient was seen and examined.
[2018-06-20 13:59] VITALS: BP 93/68; PULSE 84; TEMP 96.4
[2018-06-20 15:02] VITALS: BMI 46.9
[2018-06-20] MEDS ORDERED: FUROSEMIDE 40 MG TAB PO SCH (16:00)
--- NOTE | 2018-06-22 13:07 | DS ---
DISCHARGE SUMMARY DATE OF ADMISSION: 06/13/2018 DATE OF DISCHARGE: 06/20/2018 FINAL DIAGNOSES: 1. New onset atrial fibrillation with rapid ventricular rate, POA. 2. Acute congestive heart failure exacerbation from diastolic dysfunction, ejection fraction 45%-50%, POA. 3. Essential hypertension. 4. Chronic fibromyalgia. 5. Sciatica. 6. Primary osteoarthritis. 7. Depression, not otherwise specified. 8. Chronic insomnia. 9. Morbid obesity, body mass index of 49.4. 10.Chronic gait dysfunction uses a cane. 11.Acute renal failure prerenal from diuretics, much improved. 12.Metabolic acidosis from renal failure. 13.Diabetes mellitus type 2, uncontrolled, both with hyperglycemia and hypoglycemia. CONSULTATION: Dr. Anton from Cardiology. HOSPITAL COURSE: This is a very pleasant lady, patient of Dr. Mendoza, presented with shortness of breath, heart racing, found to be in AFIB with rapid ventricular rate, congestive heart failure. A 2D echo showed an EF of 45%-50%. Medications were adjusted. By the time of discharge, patient's heart rate was better controlled. Breathing has greatly improved. Edema had come down. Day of discharge, care was discussed with the patient and his sisters. Questions were answered. The patient will be going to live with her family for a short time before she gets back to her place. The patient has a son living with her, otherwise. PHYSICAL EXAMINATION: Temperature 96.4, pulse 84, respiration 18, blood pressure 93/68, pulse ox 92% on room air. LUNGS: Fair entry. CARDIOVASCULAR: Heart sounds irregular, mild edema. PSYCH: AO x3. INVESTIGATIONS: BUN 33, creatinine 1.17. DISCHARGE MEDICATIONS: 1. Aspirin 81 mg a day. 2. Effexor 37.5 mg p.o. daily. 3. Glucophage 1000 mg p.o. b.i.d. 4. Lipitor 10 mg q.h.s. 5. Vitamin D2 fifty thousand units weekly. 6. Lyrica 150 mg p.o. daily. 7. Januvia 100 mg p.o. daily. 8. Eliquis 5 mg p.o. b.i.d. 9. Voltaren gel 2 g topical q.i.d. 10.Lasix 40 mg p.o. b.i.d. 11.Lopressor 75 mg p.o. t.i.d. 12.Glucotrol 10 mg p.o. daily. FOLLOWUP: Follow up with Dr. Mendoza on 06/27/2018; follow up with Dr. Anton on 07/04/2018. MMVICENTAL / IJN: [id number] /
== END 2018-06-20 16:35 | disposition home or self-care (01) | DRG 308 ==
LOC: EC 09:00 → 3SCARD 11:37
PROVIDERS: ADMIT Hospitalist; ATTEND Hospitalist
DX: I48.1 Persistent atrial fibrillation (principal); I50.43 Acute on chronic combined systolic (congestive) and diastolic (congestive) heart failure; Z68.42 Body mass index [BMI] 45.0-49.9, adult; E87.2 Acidosis; N17.9 Acute kidney failure, unspecified; E11.65 Type 2 diabetes mellitus with hyperglycemia; E66.01 Morbid (severe) obesity due to excess calories; E78.5 Hyperlipidemia, unspecified; F32.9 Major depressive disorder, single episode, unspecified; F51.04 Psychophysiologic insomnia; I11.0 Hypertensive heart disease with heart failure; I49.3 Ventricular premature depolarization; M17.0 Bilateral primary osteoarthritis of knee; M54.30 Sciatica, unspecified side; M79.7 Fibromyalgia; Z79.01 Long term (current) use of anticoagulants; Z79.82 Long term (current) use of aspirin; Z79.84 Long term (current) use of oral hypoglycemic drugs; Z79.899 Other long term (current) drug therapy; Z80.0 Family history of malignant neoplasm of digestive organs; Z82.3 Family history of stroke; Z86.010 Personal history of colon polyps; Z87.442 Personal history of urinary calculi; Z90.49 Acquired absence of other specified parts of digestive tract
CPT/HCPCS: 36415; 71046; 80048; 80053; 82550; 82553; 83735; 83880; 84439; 84443; 84484; 85025; 85610; 85730; 93005; 93306; 94760; 96365; 96366; 96376; 99291

== ENCOUNTER → 2018-06-27 | Outpatient (CLI) | payer MEDICARE ==
[2018-06-28 01:07] LABS: Anion Gap 18.2 mmol/L (4.00-12.00); Carbon Dioxide 19.8 mmol/L (21.6-31.8); Potassium 4.6 mmol/L (3.5-5.5)
[2018-06-28 01:55] LABS: Hemoglobin A1C 7.7 % (4.0-6.0)
== END | disposition home or self-care (01) ==
LOC: LABWHC1 15:19
PROVIDERS: ATTEND Internal Medicine
DX: E11.9 Type 2 diabetes mellitus without complications (principal); I10 Essential (primary) hypertension; I50.9 Heart failure, unspecified; E55.9 Vitamin D deficiency, unspecified
CPT/HCPCS: 36415; 80051; 82306; 82565; 83036; 84520

== ENCOUNTER → 2018-07-04 | Outpatient (CLI) | payer MEDICARE ==
[2018-07-04 20:24] LABS: Calcium 10.1 mg/dL (8.7-10.3); Potassium 4.9 mmol/L (3.5-5.5)
== END | disposition home or self-care (01) ==
LOC: LABWHC1 12:04
PROVIDERS: ATTEND Hospitalist
DX: I48.1 Persistent atrial fibrillation (principal)
CPT/HCPCS: 36415; 80048

== ENCOUNTER → 2018-07-26 | Outpatient (CLI) | payer MEDICARE ==
[2018-07-27 02:13] LABS: Anion Gap 11.1 mmol/L (4.00-12.00); Calcium 9.4 mg/dL (8.7-10.3); Carbon Dioxide 27.9 mmol/L (21.6-31.8); Potassium 4.4 mmol/L (3.5-5.5)
== END | disposition home or self-care (01) ==
LOC: LABWHC1 15:04
PROVIDERS: ATTEND Hospitalist
DX: I48.91 Unspecified atrial fibrillation (principal)
CPT/HCPCS: 36415; 80048

== ENCOUNTER → 2018-08-03 | Outpatient (CLI) | payer MEDICARE ==
[2018-08-03 12:33] LABS: Potassium 4.7 mmol/L (3.5-5.1)
[2018-08-03 12:48] LABS: HCT 41.2 % (34.0-46.0); HGB 12.4 gm/dL (11.4-16.0); Hypochromasia Slight; MCH 25.6 pg (25.0-35.0); MCHC 30.1 g/dL (31.0-37.0); MCV 85.2 fL (80.0-100.0); Mean Platelet Volume 7.1; Platelet Count 338 k/uL (150-450); RBC 4.84 m/uL (3.80-5.40); RDW 15.2 % (11.5-15.5); WBC 13.1 k/uL (3.8-10.6)
== END | disposition home or self-care (01) ==
LOC: LABPAT 11:39
PROVIDERS: ATTEND Internal Medicine Interventional Cardiology
DX: Z01.812 Encounter for preprocedural laboratory examination (principal); I11.0 Hypertensive heart disease with heart failure; I50.22 Chronic systolic (congestive) heart failure; E78.1 Pure hyperglyceridemia
CPT/HCPCS: 36415; 80051; 82565; 84520; 85027

== ENCOUNTER 2018-08-08 06:19 | Day surgery (SDC) | payer MEDICARE ==
[2018-08-05 12:27] VITALS: BMI 46.9
[~2018-08-08 06:19] MED LIST changes: -DEXAMETHASONE SOD PHOSPHATE 10 MG/ML 1 ML VIAL IV ONE; -HEPARIN SODIUM,PORCINE 5,000 UNIT/ML 1 ML VIAL SQ ONE; -MIDAZOLAM 2 MG/2 ML VIAL IV PRN; -MORPHINE SULFATE 4 MG/ML SYRINGE IV PRN; -ONDANSETRON 4 MG/2 ML VIAL IVP ONE; +SODIUM CHLORIDE 0.9% 1,000 ML IV SCH
[2018-08-08] MEDS ORDERED: SODIUM CHLORIDE 0.9% 500 ML 500 ML IV ONE (06:48)
[2018-08-08 07:08] VITALS: TEMP 97.5
[2018-08-08 07:12] LABS: Glucose,Whole Blood 152 mg/dL (75-99)
[2018-08-08] MEDS ORDERED: PROPOFOL 10 MG/ML 20 ML VIAL IV ONE (07:20)
[2018-08-08] MEDS ORDERED: LIDOCAINE 1% INJ 10MG/ML (20 ML MDV) ONE (07:20)
[2018-08-08 08:05] VITALS: RESP 16
--- NOTE | 2018-08-08 08:07 | ECHOT ---
TRANSESOPHAGEAL ECHOCARDIOGRAM DATE OF SERVICE: August 08, 2018 PERFORMING PHYSICIAN: Rod Anton MD, it applications analyst. PROCEDURE PERFORMED: Transesophageal echocardiogram. INDICATION: This is a 67-year-old female patient who was diagnosed recently with atrial fibrillation with RVR which was uncontrolled on maximized medical treatment. Because of that, she was scheduled to undergo a cardioversion. The WENDI is to rule out any intracardiac thrombus before the cardioversion. COMPLICATION: None. LEVEL OF SEDATION: Deep sedation was performed using propofol with AUTO INSPECTION SPECIALIST in the room. PROCEDURE DESCRIPTION: After obtaining an informed consent, explaining the procedure, benefits, risks, complications and alternatives, the patient was brought to the transesophageal echocardiogram suite. A pulse oximetry and heart rate monitors were attached to the patient prior to the procedure. The patient's throat was sprayed using lidocaine locally. Following that, the patient was turned into left lateral position. A bite guard was placed and the patient was then sedated with the above doses of Versed and fentanyl in divided doses. Following that, the transesophageal echocardiogram probe was advanced through the bite guard into the mid esophagus where 2-D echocardiogram images as well as color Doppler images of various cardiac structures were obtained. We evaluated the interatrial septum using 2-D echocardiogram, color Doppler, and contrast study. The procedure was completed. There were no complications. FINDINGS: The left ventricle appeared to be dilated. Left ventricular systolic function is impaired with EF between 25% to 30% and global hypokinesia. Right ventricle appeared to be dilated as well. The left atrium and right atrium are mildly dilated. The left atrial appendage appeared to be free from any thrombus. The interatrial septum appeared to be intact without any evidence of shunt. The aortic valve is trileaflet valve without stenosis or regurgitation. The mitral valve leaflets are normal with moderate MR with central jet. There was moderate tricuspid regurgitation seen. The left atrial appendage appeared to be free from any thrombus. CONCLUSION: 1. Normal left atrial appendage without any evidence of thrombus. 2. Intact interatrial septum without any evidence of shunt. 3. Severely impaired left ventricular function with ejection fraction between 20% to 25% with global hypokinesia. 4. Dilated right ventricle with normal function. 5. Moderate mitral regurgitation was seen. 6. Moderate tricuspid regurgitation was seen as well. 7. Trileaflet aortic valve seems to be functioning normally. 8. Normal aortic root dimension. 9. No evidence of pericardial effusion. MMODL / IJN: [id number] /
--- NOTE | 2018-08-08 08:28 | CE ---
CARDIAC ELECTROPHYSIOLOGY REPORT DATE OF SERVICE: 08/08/2018 PERFORMING PHYSICIAN: Rod Anton MD, [employer] Operator. PROCEDURE: Cardioversion of atrial fibrillation. INDICATION: This is a 67-year-old female patient who was diagnosed recently with atrial fibrillation with RVR and she was uncontrolled on maximize medical treatment and also was symptomatic. She was anticoagulated for at least 6 weeks using oral anticoagulation with Eliquis. COMPLICATION: None. LEVEL OF SEDATION: Deep sedation was performed using propofol with FINANCE ADVISOR in the room. PROCEDURE DESCRIPTION: After WENDI was performed and intracardiac thrombus was ruled out, we proceeded with a cardioversion. The patient converted from atrial fibrillation to normal sinus mechanism using 200 joules on first attempt. CONCLUSION: Successful cardioversion of atrial fibrillation to normal sinus mechanism using 200 joules on first attempt. POSTPROCEDURE MANAGEMENT: 1. Continue anticoagulation. 2. Maximize medical treatment. 3. Follow up with the patient. MMODL / IJN: [id number] /
[2018-08-08 09:03] VITALS: BP 128/70
[2018-08-08 09:32] VITALS: PULSE 62
== END 2018-08-08 09:37 | disposition home or self-care (01) ==
LOC: CATHCVL 06:19
PROVIDERS: ATTEND Internal Medicine Interventional Cardiology
DX: I48.0 Paroxysmal atrial fibrillation (principal); I08.1 Rheumatic disorders of both mitral and tricuspid valves; I11.0 Hypertensive heart disease with heart failure; I50.9 Heart failure, unspecified; E78.5 Hyperlipidemia, unspecified; E66.3 Overweight; Z68.42 Body mass index [BMI] 45.0-49.9, adult; E11.9 Type 2 diabetes mellitus without complications; Z79.01 Long term (current) use of anticoagulants; Z79.84 Long term (current) use of oral hypoglycemic drugs; Z79.82 Long term (current) use of aspirin; Z79.899 Other long term (current) drug therapy
CPT/HCPCS: 93312; 93320; 93325; 92960; J2001; J2704

== ENCOUNTER → 2019-02-07 | Outpatient (CLI) | payer MEDICARE ==
--- NOTE | 2019-02-07 20:51 | CONS ---
CONSULTATION REASON FOR CONSULTATION: Sleep apnea. 68-year-old female patient who recently was hospitalized for atrial fibrillation. She came into the hospital for more than a week to have atrial fibrillation controlled and ultimately she was placed on drugs and she was given a cardioversion. She is still in sinus rhythm for now. Based on obesity and anatomic features, the patient was suspected of obstructive sleep apnea. She denies snoring. She has difficulty initiating sleep. However after going to sleep she wakes up frequently in the middle of the night. She goes to bed between 11 p.m. and midnight and she up around 9 o'clock in the morning. No major fatigue, tiredness or sleepiness during the day. Her current Newport score is at 4. Her weight has been fluctuating recently down compared to her baseline. She has lost around 15 pounds since her hospitalization for atrial fibrillation. No sleep paralysis, hallucinations or cataplexy. PAST MEDICAL HISTORY: Atrial fibrillation. Her past medical history is also positive for diabetes mellitus, hyperlipidemia, and history of depression. PAST SURGICAL HISTORY: Includes kidney stone procedure and cardioversion. DRUG ALLERGIES: Not known. OUTPATIENT MEDICATION LIST: Includes glipizide 10 mg p.o. daily, Januvia 100 mg p.o. daily, Lasix 40 mg p.o. day, Aldactone 25 mg p.o. b.i.d., metoprolol 25 mg t.i.d., [place] 5/325, 1 tab, bid, venlafaxine Effexor 37.5 mg 1 tab b.i.d., temazepam 50 mg at bedtime and Lipitor 40 mg p.o. daily. SOCIAL HISTORY: Nonsmoker, no history of alcohol. No history of IV drugs. FAMILY HISTORY: Negative for sleep apnea in the family. REVIEW OF SYSTEMS: Fourteen-point review of system was done. Positive findings are mentioned above in history of present illness. The patient is waking up tired and she is worried about her sleep knowing that her sleep is fragmented and she is having some difficulty initiating sleep and at times she takes temazepam for sleep induction. No falls or trauma to her head. No meningitis or encephalitis. No neck pain. No back pain. No nausea, vomiting, or diarrhea. No abdominal pain. No chest pain. No shortness of breath. No cough or sputum production. No swelling in the lower extremities. No issues with chronic pain. PHYSICAL EXAMINATION: BP is 115/62, pulse 53, respirations 16, temp 97.8, saturation 95% on room air. Height is 5 feet 0 inches, weight is 235, and BMI is 45.8, neck size is 16 inches. Newport score was 4. GENERAL APPEARANCE: Calm, comfortable. Head is atraumatic, normocephalic. NECK: Supple. No JVD. No goiter or neck masses. Mallampati class 4. LUNGS: Diminished, otherwise clear. HEART: Sounds regular rate and rhythm. Normal S1, S2. No S3, S4. No murmurs. ABDOMEN: Soft, nontender. No organomegaly. EXTREMITIES: No edema. No cyanosis or clubbing. Neurologically: Alert and oriented times three. There are no focal neurological deficits. PSYCHIATRIC: Negative for anxiety or depression. IMPRESSION: 1. Atrial fibrillation. Currently in normal sinus rhythm. The patient is post cardioversion and medical treatment. 2. Obesity with a BMI of 45.8. 3. Sleep fragmentation with difficulties in sleep induction and frequent awakening in middle of the night. Rule out underlying insomnia. Rule out a component of obstructive sleep apnea as the patient has the typical anatomic features including obesity, high BMI and Mallampati class 4 with a slight overbite. 4. Diabetes mellitus. 5. Hypertension. 6. Hyperlipidemia. PLAN: 1. Encourage weight loss. The patient has already lost 15 pounds. 2. Optimize cardiovascular risk factors. 3. Management of atrial fibrillation per Cardiology. 4. We will screen the patient for sleep apnea based on her history and decide if there is any treatment needed regarding any form of sleep breathing disorder. 5. We will make further recommendations based on results of the sleep study. MMODL / IJN: [id number] /
== END ==
LOC: SLEEP 14:44
PROVIDERS: ATTEND Internal Medicine Critical Care Medicine
DX: G47.8 Other sleep disorders (principal); E66.9 Obesity, unspecified; E11.9 Type 2 diabetes mellitus without complications; I10 Essential (primary) hypertension; E78.5 Hyperlipidemia, unspecified; Z68.42 Body mass index [BMI] 45.0-49.9, adult; Z79.899 Other long term (current) drug therapy; Z79.891 Long term (current) use of opiate analgesic
CPT/HCPCS: 99211

== ENCOUNTER → 2019-03-22 | Outpatient (CLI) | payer MEDICARE ==
--- NOTE | 2019-03-24 13:30 | MM ---
Reason for exam: screening (asymptomatic). Last mammogram was performed 2 years and 2 months ago. History: Patient is postmenopausal. Physical Findings: A clinical breast exam by your physician is recommended on an annual basis and results should be correlated with mammographic findings. MG 3D Screening Mammo W/Cad Bilateral CC and MLO view(s) were taken. Prior study comparison: January 06, 2017, bilateral MG 3d screening mammo w/cad. May 19, 2011, bilateral digital screening mammo w/CAD. There are scattered fibroglandular densities. There is chronic nodularity in the right breast. No significant changes when compared with prior studies. ASSESSMENT: Negative, BI-RAD 1 RECOMMENDATION: Routine screening mammogram of both breasts in 1 year.
== END | disposition home or self-care (01) ==
LOC: RADMAMWWP 13:26
PROVIDERS: ATTEND Internal Medicine
DX: Z12.31 Encounter for screening mammogram for malignant neoplasm of breast (principal)
CPT/HCPCS: 77063; 77067

== ENCOUNTER → 2021-02-07 | Outpatient (CLI) | payer MEDICARE ==
[2021-02-07 13:00] LABS: Appearance,Urine Cloudy (Clear); Bacteria,Urine Rare /hpf; Bilirubin,Urine Negative (Negative); Blood,Urine Negative (Negative); Color,Urine Light Yellow; Glucose,Urine (UA) Negative (Negative); Ketones,Urine Negative (Negative); Leukocyte Esterase,Urine Large (Negative); Mucus,Urine Rare /hpf; Nitrite,Urine Negative (Negative); Protein,Urine 1+ (Negative); Specific Gravity,Urine 1.016 (1.001-1.035); Squamous Epithelial Cell,Urine 11 /hpf (0-4); Urobilinogen,Urine <2.0 mg/dL (<2.0); WBC,Urine 28 /hpf (0-5)
[2021-02-07 20:08] LABS: HGB 9.6 g/dL (12.0-15.0); MCH 25.9 pg (27.0-32.0); MCV 86.3 fL (80.0-97.0); Mean Platelet Volume 11.1 fL (9.5-12.2); Platelet Count 321 X 10*3/uL (140-440); RBC 3.71 X 10*6/uL (4.10-5.20); RDW 15.5 % (11.5-14.5); WBC 8.53 X 10*3/uL (4.50-10.00)
[2021-02-08 06:00] LABS: ALT <8 U/L (8-44); AST 18 U/L (13-35); African American GFR (CKD) 52.7 (60.0-200.0); Albumin/Globulin Ratio 1.63 (1.60-3.17); Alkaline Phosphatase 167 U/L (41-126); BUN/Creat Ratio 26.67 Ratio (12.00-20.00); Carbon Dioxide 18.8 mmol/L (21.6-31.8); Chloride 111 mmol/L (96-109); Globulin 2.4 g/dL (1.6-3.3); Glucose 110 mg/dL (70-110); Iron 39 ug/dL (50-170); Magnesium 1.7 mg/dL (1.5-2.4); Non-African American GFR(CKD) 45.4 (60.0-200.0); Phosphorus 3.8 mg/dL (2.4-5.1); Potassium 5.1 mmol/L (3.5-5.5); Sodium 143 mmol/L (135-145); Total Bilirubin 0.2 mg/dL (0.2-1.2); Total Iron Binding Capacity 398 ug/dL (228-460); Total Protein 6.3 g/dL (6.2-8.2); Uric Acid 6.9 mg/dL (2.9-7.7); Urine Creatinine 86.4 mg/dL
== END | disposition home or self-care (01) ==
LOC: LABWHC1 11:27
PROVIDERS: ATTEND Nurse Practitioner Family
DX: N18.32 Chronic kidney disease, stage 3b (principal); N39.0 Urinary tract infection, site not specified; R80.9 Proteinuria, unspecified; N25.81 Secondary hyperparathyroidism of renal origin; D64.9 Anemia, unspecified; E55.9 Vitamin D deficiency, unspecified
CPT/HCPCS: 36415; 80053; 81001; 82043; 82306; 82570; 82728; 83540; 83550; 83735; 83970; 84100; 84550; 85027; 87086

== ENCOUNTER → 2021-02-28 | Outpatient (CLI) | payer MEDICARE ==
[2021-02-28 22:06] LABS: African American GFR (CKD) 58.5 (60.0-200.0); Anion Gap 14.3 mmol/L (4.00-12.00); BUN/Creat Ratio 35.82 Ratio (12.00-20.00); Blood Urea Nitrogen 39.4 mg/dL (9.0-27.0); Calcium 9.8 mg/dL (8.7-10.3); Carbon Dioxide 20.7 mmol/L (21.6-31.8); Non-African American GFR(CKD) 50.5 (60.0-200.0); Potassium 4.3 mmol/L (3.5-5.5)
== END | disposition home or self-care (01) ==
LOC: LABWHC1 11:46
PROVIDERS: ATTEND Internal Medicine
DX: N18.32 Chronic kidney disease, stage 3b (principal)
CPT/HCPCS: 36415; 80048

== ENCOUNTER → 2021-09-15 | Outpatient (CLI) | payer MEDICARE ==
[2021-09-15 18:49] LABS: HCT 32.5 % (37.2-46.3); HGB 10.4 g/dL (12.0-15.0); MCH 29.4 pg (27.0-32.0); MCV 91.8 fL (80.0-97.0); Mean Platelet Volume 10.4 fL (9.5-12.2); NRBC Per 100 WBC 0 /100 WBCS (0.0-0.0); Platelet Count 308 X 10*3/uL (140-440); RBC 3.54 X 10*6/uL (4.10-5.20); RDW 13.8 % (11.5-14.5); WBC 10.24 X 10*3/uL (4.50-10.00)
--- NOTE | 2021-09-15 20:25 | US ---
EXAMINATION TYPE: US kidneys/renal and bladder DATE OF EXAM: 09/15/2021 COMPARISON: US 03/16/2017,CT 06/30/2017 CLINICAL HISTORY: N18.32 Chronic kidney disease, stage III. Prior lithotripsy 1994; diabetic EXAM MEASUREMENTS: Right Kidney: 11.8 x 6.2 x 5.9 cm Left Kidney: 11.7 x 5.1 x 5.0 cm Post Void Residual Volume: patient emptied completely Right Kidney: perirenal renal fat is noted Left Kidney: No hydronephrosis or masses seen; lower cortical cyst seen = 1.4 x 1.2 x 1.0 cm Bladder: Partially distended without evidence of mass. Bilateral Jets seen: The right ureteral jet was seen. The left ureteral jet was not seen. Normal Post Void Residual: yes There is no evidence for hydronephrosis at this point in time. No nephrolithiasis is seen. No danial s are identified. The urinary bladder is anechoic. IMPRESSION: 1. No evidence of obstructive uropathy. 2. Left renal cyst. 3. Nonvisualization of the left ureteral jet.
[2021-09-15 20:33] LABS: Appearance,Urine Clear (Clear); Bacteria,Urine None Seen /HPF (None Seen); Bilirubin,Urine Negative (Negative); Blood,Urine Negative (Negative); Color,Urine Yellow (Yellow); Ketones,Urine Negative (Negative); Nitrite,Urine Negative (Negative); PH, Urine 5.5 (5.0-8.0); Specific Gravity,Urine 1.008 (1.001-1.030); Urobilinogen,Urine 0.2 (0.2,1.0)
[2021-09-16 01:30] LABS: % Iron Saturation 12.63 (12.00-45.00); Chol/HDL Ratio 4.22 Ratio; Iron 56 ug/dL (50-170); LDL Cholesterol,Calculated 107.3 mg/dL (0.0-131.0); Total Iron Binding Capacity 441 ug/dL (228-460)
[2021-09-16 03:06] LABS: ALT 5 U/L (8-44); AST 14 U/L (13-35); African American GFR (CKD) 54.3 (60.0-200.0); Albumin 4.1 g/dL (3.8-4.9); Albumin/Globulin Ratio 1.67 (1.60-3.17); Alkaline Phosphatase 125 U/L (41-126); BUN/Creat Ratio 33.59 Ratio (12.00-20.00); Bilirubin, Conjugated <0.20 mg/dL (0.20-0.40); Blood Urea Nitrogen 39.3 mg/dL (9.0-27.0); Carbon Dioxide 20.1 mmol/L (20.0-27.5); Chloride 102 mmol/L (96-109); Globulin 2.4 g/dL (1.6-3.3); Glucose 132 mg/dL (70-110); Magnesium 1.9 mg/dL (1.5-2.4); Non-African American GFR(CKD) 46.8 (60.0-200.0); Phosphorus 4.1 mg/dL (2.4-5.1); Potassium 4.8 mmol/L (3.5-5.5); Sodium 139 mmol/L (135-145); Total Bilirubin <0.15 mg/dL (0.30-1.20); Total Protein 6.5 g/dL (6.2-8.2); Uric Acid 6.9 mg/dL (2.9-7.7)
[2021-09-16 19:38] LABS: Urine Creatinine 42.9 mg/dL (28.0-217.0)
== END | disposition home or self-care (01) ==
LOC: RADUSWWP 12:20
PROVIDERS: ATTEND Nurse Practitioner Family
DX: E11.22 Type 2 diabetes mellitus with diabetic chronic kidney disease (principal); N18.32 Chronic kidney disease, stage 3b; N28.1 Cyst of kidney, acquired; M10.9 Gout, unspecified; E55.9 Vitamin D deficiency, unspecified; E21.3 Hyperparathyroidism, unspecified; R80.9 Proteinuria, unspecified; D64.9 Anemia, unspecified; E78.5 Hyperlipidemia, unspecified
CPT/HCPCS: 76770; 80053; 80061; 81001; 82043; 82248; 82306; 82570; 82728; 83036; 83540; 83550; 83735; 83970; 84100; 84550; 85027

== ENCOUNTER 2022-10-30 10:59 | Day surgery (SDC) | payer MEDICARE ==
[~2022-10-30 10:59] MED LIST changes: +LIDOCAINE 1% (10MG/ML) FOR IV START INTRADERMA PRN; -SODIUM CHLORIDE 0.9% 1,000 ML IV SCH
[2022-10-30 12:33] LABS: Glucose,Whole Blood 188 mg/dL (70-110)
[2022-10-30 12:35] VITALS: RESP 16; TEMP 97.9
[2022-10-30] MEDS ORDERED: PROPOFOL 10 MG/ML 20 ML VIAL IV ONE (13:21)
--- NOTE | 2022-10-30 13:58 | P.PCN ---
Date of Procedure: 10/30/22 Procedure(s) Performed: BRIEF HISTORY: Patient is a 71-year-old pleasant white female scheduled for an elective colonoscopy as a part of evaluation of prior history of colon polyps. PROCEDURE PERFORMED: Colonoscopy. With snare polypectomy PREOPERATIVE DIAGNOSIS: History of colon polyps. IV sedation per Anesthesia. PROCEDURE: After informed consent was obtained, the patient, was brought into the endoscopy unit. IV sedation was administered by Anesthesia under continuous monitoring. Digital rectal examination was normal. Initially the Olympus CF-160 flexible video colonoscope was then inserted in the rectum, gradually advanced into the cecum without any difficulty. Careful examination was performed as the scope was gradually being withdrawn. Ileocecal valve and the appendiceal orifice were visualized and appeared normal. Prep was excellent. Mucosa of the cecum, appeared normal. In the ascending colon there was a 1 m, too centimeter and a 3 cm broad-based polyp somewhat by snare polyp rectum and complete polypectomy done. In the transverse colon there was a 2 cm with recent meter broad-based polyps removed by snare snare polypectomy. In the descending colon there was a 1 m, too centimeter and another 3 cm broad-based polyps removed by polypectomy. In the sigmoid colon there was a small superficial ulceration in the vicinity of the diverticulosis which was biopsied. Scattered left-sided diverticulosis seen. Rest of the sigmoid colon, and rectum appeared normal. Retroflexion was performed in the rectum and no lesions were seen. The patient tolerated the procedure well. IMPRESSION: 1 cm, 3 cm and 2 cm ascending colon polyps status post piecemeal snare polypectomy and complete polypectomy done 2 cm and 3 cm transverse colon polyps status post polypectomy 1 cm, too centimeter and 3 cm pedunculated descending colon polyp status post polypectomy Small ulceration in the sigmoid colon in the vicinity of diverticulosis status post biopsy RECOMMENDATIONS: Findings of this examination were discussed with the patient as well as a family. She was advised to follow with the biopsy results. She'll be seen in office in one week. Based the biopsy results will plan a repeat colonoscopy in 6 months..
[2022-10-30 14:20] VITALS: BP 116/55; PULSE 65
== END 2022-10-30 15:04 | disposition home or self-care (01) ==
LOC: ORWHC2ENDO 10:59
PROVIDERS: ATTEND Internal Medicine Gastroenterology
DX: Z12.11 Encounter for screening for malignant neoplasm of colon (principal); D12.3 Benign neoplasm of transverse colon; D12.2 Benign neoplasm of ascending colon; D12.4 Benign neoplasm of descending colon; K63.3 Ulcer of intestine; K57.30 Diverticulosis of large intestine without perforation or abscess without bleeding; I10 Essential (primary) hypertension; E78.5 Hyperlipidemia, unspecified; I48.91 Unspecified atrial fibrillation; E11.9 Type 2 diabetes mellitus without complications; F32.A Depression, unspecified; N20.0 Calculus of kidney; M79.7 Fibromyalgia; Z86.010 Personal history of colon polyps; Z79.84 Long term (current) use of oral hypoglycemic drugs; Z79.899 Other long term (current) drug therapy; Z79.01 Long term (current) use of anticoagulants
CPT/HCPCS: 88305; 45380; 45385; J2704

== ENCOUNTER 2023-03-12 15:26 | Emergency (ER) | payer MEDICARE ==
--- NOTE | 2023-03-12 16:25 | ED ---
Fall HPI - General Chief Complaint: Fall Stated Complaint: fall- on thinners, hit head Time Seen by Provider: 03/12/23 15:48 Source: patient, RN notes reviewed, old records reviewed Mode of arrival: ambulatory Limitations: no limitations - History of Present Illness Initial Comments: 72-year-old female to the emergency department for evaluation. Patient presents today for evaluation regards to fall with minimal bleeding from the back of her scalp but no other acute findings. Patient's not in any distress she is on blood thinners. Patient presents today for evaluation of headache MD Complaint: fall -: days(s) Fall From: standing When Fall Occurred: unsure Fall Witnessed: no Place Fall Occurred: home Loss of Consciousness: none Prolonged Down Time?: no Symptoms Prior to Fall: none Location: head Severity: moderate Severity scale (1-10): 4 Context: tripped/slipped Associated Symptoms: denies - Related Data Home Medications Medication Instructions Recorded Confirmed Venlafaxine HCl [Effexor] 37.5 mg PO QAM 04/15/16 10/30/22 Atorvastatin [Lipitor] 20 mg PO HS 07/14/17 10/30/22 Ergocalciferol (Vitamin D2) 50,000 unit PO Q14D 07/14/17 10/30/22 [Vitamin D2] Furosemide [Lasix] 20 mg PO DAILY 08/05/18 10/30/22 glipiZIDE [Glucotrol] 10 mg PO BID 08/05/18 10/30/22 Metoprolol Tartrate [Lopressor] 100 mg PO BID 02/14/21 10/30/22 Spironolactone 12.5 mg PO DAILY 02/14/21 10/30/22 allopurinoL [Zyloprim] 100 mg PO DAILY 02/14/21 10/30/22 gemfibroziL [Lopid] 600 mg PO DAILY 02/14/21 10/30/22 metFORMIN HCL 500 mg PO BID 02/14/21 10/30/22 Magnesium 200 mg PO DAILY 10/02/22 10/30/22 Melatonin 2.5 mg PO HS 10/29/22 10/30/22 Unk Ozempic 1 injection SQ SA 10/29/22 10/30/22 lisinopriL [Lisinopril] 2.5 mg PO DAILY 10/29/22 10/30/22 Previous Rx's Medication Instructions Recorded Apixaban [Eliquis] 5 mg PO BID #60 tab 06/20/18 Allergies Allergy/AdvReac Type Severity Reaction Status Date / Time No Known Allergies Allergy Verified 10/30/22 12:36 Review of Systems ROS Statement: Those systems with pertinent positive or pertinent negative responses have been documented in the HPI. ROS Other: All systems not noted in ROS Statement are negative. Past Medical History Past Medical History: Atrial Fibrillation, Blood Disorder, Diabetes Mellitus, Fibromyalgia, Hyperlipidemia, Hypertension, Osteoarthritis (OA), Renal Disease Additional Past Medical History / Comment(s): NIDDM type II, neuropathy bilateral feet, ,hx arthritis bilateral knees, kidney stones with surgery, sinus allergies. IRON DEFICIENCY ANEMIA. "KIDNEY PROBLEMS". gfr 32 History of Any Multi-Drug Resistant Organisms: None Reported Past Surgical History: Cholecystectomy, Joint Replacement, Orthopedic Surgery, Tubal Ligation Additional Past Surgical History / Comment(s): LITHOTRIPSY, D&C. COLONOSCOPY/BENIGN POLUP. cardioversion. BILATERAL KNEE REPLACEMENT. Past Anesthesia/Blood Transfusion Reactions: No Reported Reaction Additional Past Anesthesia/Blood Transfusion Reaction / Comment(s): sometimes slow to come out of it Past Psychological History: Depression Smoking Status: Never smoker - Past Family History Mother Family Medical History: Cancer, Dementia Additional Family Medical History / Comment(s): Mother had colon cancer. Father Family Medical History: CVA/TIA Additional Family Medical History / Comment(s): Father was healthy until later in life when he had a bowel obstruction and CVA. General Exam Limitations: no limitations General appearance: alert, in no apparent distress Head exam: Present: atraumatic, normocephalic, normal inspection Eye exam: Present: normal appearance, PERRL, EOMI. Absent: scleral icterus, conjunctival injection, periorbital swelling ENT exam: Present: normal exam, mucous membranes moist Neck exam: Present: normal inspection. Absent: tenderness, meningismus, lymphadenopathy Respiratory exam: Present: normal lung sounds bilaterally. Absent: respiratory distress, wheezes, rales, rhonchi, stridor Cardiovascular Exam: Present: regular rate, normal rhythm, normal heart sounds. Absent: systolic murmur, diastolic murmur, rubs, gallop, clicks GI/Abdominal exam: Present: soft, normal bowel sounds. Absent: distended, tenderness, guarding, rebound, rigid Extremities exam: Present: normal inspection, full ROM, normal capillary refill. Absent: tenderness, pedal edema, joint swelling, calf tenderness Back exam: Present: normal inspection Neurological exam: Present: alert, oriented X3, CN II-XII intact Psychiatric exam: Present: normal affect, normal mood Skin exam: Present: warm, dry, intact, normal color. Absent: rash Course Vital Signs 03/12/23 03/12/23 15:31 17:48 Temperature 99.8 F H Pulse Rate 64 88 Respiratory 16 18 Rate Blood Pressure 104/60 110/68 O2 Sat by Pulse 99 98 Oximetry - Reevaluation(s) Reevaluation #1: 03/12/23 Medical record is reviewed Reevaluation #2: 03/12/23 Patient symptoms are unchanged Reevaluation #3: 03/12/23 Patient informed results and questions answered Reevaluation #4: Was pt. sent in by a medical professional or institution (, PA, [facility]CH[facility]ISE HANDLER, urgent care, hospital, or long term...) When possible be specific @ -no Did you speak to anyone other than the patient for history (EMS, parent, family, police, friend...)? What history was obtained from this source @ -no Did you review nursing and triage notes (agree or disagree)? Why? @ -agree Are old charts reviewed (outside hosp., previous admission, EMS record, old EKG, old radiological studies, urgent care reports/EKG's, long term records)? Report findings @ -yes Differential Diagnosis (chest pain, altered mental status, abdominal pain women, abdominal pain men, vaginal bleeding, weakness, fever, dyspnea, syncope, he adache, dizziness, GI bleed, back pain, seizure, CVA, palpatations, mental health, musculoskeletal)? @ -prior EKG interpreted by me (3pts min.). @ -no X-rays interpreted by me (1pt min.). @ -no CT interpreted by me (1pt min.). @ -yes U/S interpreted by me (1pt. min.). @ -no What testing was considered but not performed or refused? (CT, X-rays, U/S, labs)? Why? @ -none What meds were considered but not given or refused? Why? @ -none Did you discuss the management of the patient with other professionals (professionals i.e. , PA, MERCHANDISE HANDLER, lab, RT, psych nurse, social worker aide, cotton picking machine operator, teacher, production officer, caser shoe parts)? Give summary @ -no Was smoking cessation discussed for >3mins.? @ -no Was critical care preformed (if so, how long)? @ -no Were there social determinants of health that impacted care today? How? (Homelessness, low income, unemployed, alcoholism, drug addiction, transportation, low edu. Level, literacy, decrease access to med. care, [facility], rehab)? @ -none Was there de-escalation of care discussed even if they declined (Discuss DNR or withdrawal of care, Hospice)? DNR status @ -no What co-morbidities impacted this encounter? (DM, HTN, Smoking, COPD, CAD, Canc er, CVA, ARF, Chemo, Hep., AIDS, mental health diagnosis, sleep apnea, morbid obesity)? @ -none Was patient admitted / discharged? Hospital course, mention meds given and route, prescriptions, significant lab abnormalities, going to OR and other pertinent info. @ - 72 female to the emergency department for evaluation of head injury headache after fall. CT brain C-spine negative for acute disease patient can be discharged home Discharge Undiagnosed new problem with uncertain prognosis? @ -no Drug Therapy requiring intensive monitoring for toxicity (Heparin, Nitro, Insulin, Cardizem)? @ -no Were any procedures done? @ -no Diagnosis/symptom? @ -Fall with head injury Acute, or Chronic, or Acute on Chronic? @ -Acute Uncomplicated (without systemic symptoms) or Complicated (systemic symptoms)? @ -Complicated Side effects of treatment? @ -no Exacerbation, Progression, or Severe Exacerbation? @ -exacerbation Poses a threat to life or bodily function? How? (Chest pain, [place], [place], pneumonia, PE, COPD, DKA, ARF, appy, cholecystitis, CVA, Diverticulitis, Homicidal, Suicidal, threat to staff... and all critical care pts) @ -yes Medical Decision Making - Medical Decision Making 72 female to the emergency department for evaluation of head injury headache after fall. CT brain C-spine negative for acute disease patient can be dis charged home - Radiology Data Radiology results: report reviewed (CT brain C-spine negative for acute disease), image reviewed Disposition Clinical Impression: Fall, Head injury, Scalp laceration, Occipital scalp laceration Disposition: HOME SELF-CARE Condition: Good Instructions (If sedation given, give patient instructions): Fall Prevention for Older Adults (ED) Is patient prescribed a controlled substance at d/c from ED?: No Referrals: Ronnie Mendoza MD [Primary Care Provider] - 1-2 days Time of Disposition: 17:20
[2023-03-12 16:30] VITALS: TEMP 99.8
--- NOTE | 2023-03-12 16:46 | CT ---
EXAMINATION TYPE: CT brain shala wo con DATE OF EXAM: 03/12/2023 COMPARISON: None HISTORY: 72-year-old female pain, Trip and fall, hit back of head, on thinners. CT DLP: 1517.8 mGycm Automated exposure control for dose reduction was used. Technique: Examination of the head was done in axial plane without intravenous contrast. Coronal and sagittal reconstructions performed. CT of the cervical spine was obtained in axial plane without intravenous injection of contrast mater ial. Coronal and sagittal reformatted images were obtained from the axial views for evaluation of f ractures, spinal alignment and canal. FINDINGS: Head: There is no evidence of acute intracranial hemorrhage, acute ischemic changes, mass effect, or extra -axial fluid collection. There is no effacement of cerebral sulci or basal subarachnoid cisterns. T here is no hydrocephalus. There is no midline shift. Soto-white matter distinction is preserved. Either dystrophic dural calcification or small calcified 9 mm meningioma superior right frontal conve xity. Paranasal sinuses and mastoid air cells are well pneumatized. Orbits and globes are intact. Cervical spine: No craniocervical junction anomaly, predental space widening, or prevertebral soft tissue swelling. T here is retropharyngeal course of the bilateral common carotid arteries. Reversal of normal cervical lordosis with a degenerative anterolisthesis grade 1 C3-C4. Remaining ali gnment is maintained. Disc osteophyte complex C4-C5 mildly narrows the spinal canal. Moderate to advanced dissection plate degenerative change from C4 through C7 levels. No acute fracture seen of the cervical spine. Degenerative bony ankylosis posterior elements C2-C3. Moderate left neuroforaminal stenosis C3-C4 and on the right at C6-C7. Sagittal and coronal reformatted images confirm above findings. COMBINED IMPRESSION: 1. No acute intracranial abnormality seen. 2. No acute fracture of the cervical spine. Moderate to advanced disc/endplate degenerative change C4 -C7 levels. Degenerative grade 1 anterolisthesis C3-C4.
[2023-03-12 17:53] VITALS: BP 110/68; PULSE 88; RESP 18
== END 2023-03-12 17:51 | disposition home or self-care (01) ==
LOC: EC 15:26
DX: S01.01XA Laceration without foreign body of scalp, initial encounter (principal); I10 Essential (primary) hypertension; F32.A Depression, unspecified; E78.5 Hyperlipidemia, unspecified; E11.9 Type 2 diabetes mellitus without complications; I48.91 Unspecified atrial fibrillation; Z79.84 Long term (current) use of oral hypoglycemic drugs; Z79.899 Other long term (current) drug therapy; Z90.49 Acquired absence of other specified parts of digestive tract; W18.30XA Fall on same level, unspecified, initial encounter
CPT/HCPCS: 70450; 72125; 99284

== ENCOUNTER 2023-05-14 07:01 | Day surgery (SDC) | payer MEDICARE ==
[2023-05-13 11:47] VITALS: BMI 38.2
[~2023-05-14 07:01] MED LIST changes: -LIDOCAINE 1% (10MG/ML) FOR IV START INTRADERMA PRN
[2023-05-14 07:49] LABS: Glucose,Whole Blood 141 mg/dL (70-110)
[2023-05-14 07:56] VITALS: RESP 16; TEMP 96.9
[2023-05-14] MEDS ORDERED: PROPOFOL 10 MG/ML 20 ML VIAL IV ONE (09:09)
--- NOTE | 2023-05-14 09:27 | P.PCN ---
Date of Procedure: 05/14/23 Procedure(s) Performed: BRIEF HISTORY: Patient is a 69-year-old pleasant white female scheduled for an elective colonoscopy as a part of evaluation of prior history of colon polyps. Her last colonoscopy was in October of this year and was noted to have multiple large colon polyps all of which were removed by snare polypectomy and biopsy revealed adenoma and tubular villous adenoma PROCEDURE PERFORMED: Colonoscopy with snare polypectomy PREOPERATIVE DIAGNOSIS: History of colon polyps. IV sedation per Anesthesia. PROCEDURE: After informed consent was obtained, the patient, was brought into the endoscopy unit. IV sedation was administered by Anesthesia under continuous monitoring. Digital rectal examination was normal. Initially the Olympus CF-160 flexible video colonoscope was then inserted in the rectum, gradually advanced into the cecum without any difficulty. Careful examination was performed as the scope was gradually being withdrawn. Ileocecal valve and the appendiceal orifice were visualized and appeared normal. Prep was fair.. Mucosa of the cecum, appeared normal. Ascending colon there was a 3 mm, 5 mm and 1 cm polyp all of which were removed by snare polypectomy. In the descending colon there were 5 mm x2 polyps removed by cold snare polypectomy. Rest of the ascending colon, transverse colon, descending colon, sigmoid colon, and rectum appeared normal. Scattered sigmoid diverticulosis. Retroflexion was performed in the rectum and no lesions were seen. The patient tolerated the procedure well. IMPRESSION: 3 mm, 5 mm and 1 cm ascending colon polyp status post snare polypectomy 5 mm 2 descending colon polyp status post polypectomy Scattered sigmoid diverticulosis RECOMMENDATIONS: Findings of this examination were discussed with the patient as well as a family. She was advised to follow with the biopsy results. If the biopsy results adenoma she can have a repeat colonoscopy in 3 years..
[2023-05-14 10:04] VITALS: BP 121/77; PULSE 89
== END 2023-05-14 10:05 | disposition home or self-care (01) ==
LOC: ORWHC2ENDO 07:01
PROVIDERS: ATTEND Internal Medicine Gastroenterology
DX: Z12.11 Encounter for screening for malignant neoplasm of colon (principal); D12.2 Benign neoplasm of ascending colon; D12.4 Benign neoplasm of descending colon; K57.30 Diverticulosis of large intestine without perforation or abscess without bleeding; I48.91 Unspecified atrial fibrillation; I10 Essential (primary) hypertension; E78.5 Hyperlipidemia, unspecified; F32.A Depression, unspecified; G62.9 Polyneuropathy, unspecified; Z86.010 Personal history of colon polyps; Z79.01 Long term (current) use of anticoagulants; Z79.899 Other long term (current) drug therapy; Z79.84 Long term (current) use of oral hypoglycemic drugs; Z90.49 Acquired absence of other specified parts of digestive tract
CPT/HCPCS: 88305; 45385; J2704

== ENCOUNTER → 2023-08-18 | Outpatient (CLI) | payer MEDICARE ==
--- NOTE | 2023-08-19 12:52 | MM ---
Reason for Exam: Screening (asymptomatic). Last mammogram was performed 4 year(s) and 5 month(s) ago. Patient History: Menarche at age 12. First Full-Term at age 23. Postmenopausal. Patient has history of breast feeding. Risk Values: Chata 5 year model risk: 1.6%. NCI Lifetime model risk: 3.9%. Prior Study Comparison: 05/19/2011 Bilateral Screening Mammogram, [facility]. 01/06/2017 Bilateral Screening Mammogram, [facility]. 03/22/2019 Bilateral Screening Mammogram, [facility]. Tissue Density: There are scattered areas of fibroglandular density. Findings: Analyzed By CAD. The pattern is symmetrical. The pattern is stable. Scattered benign obtained calcifications are bilateral chronic nodularity is within the right breast No suspicious groups of microcalcifications, spiculated or lobular masses, architectural distortion or other secondary signs of malignancy are mammographically apparent. Overall Assessment: Benign, BI-RAD 2 Management: Screening Mammogram of both breasts in 1 year. A negative mammogram report should not preclude additional follow up of suspicious palpable abnormalities. Patient should continue monthly self breast exam. A clinical breast exam by your physician is recommended on an annual basis and results should be correlated with mammographic findings. Electronically signed and approved by: Santosh Mg D.O. Radiologis
== END | disposition home or self-care (01) ==
LOC: RADMAMWWP 12:28
PROVIDERS: ATTEND Family Medicine
DX: Z12.31 Encounter for screening mammogram for malignant neoplasm of breast (principal); Z78.0 Asymptomatic menopausal state
CPT/HCPCS: 77063; 77067

== ENCOUNTER → 2024-06-19 | Outpatient (CLI) | payer MEDICARE ==
[2024-06-19 18:40] LABS: ALT 17 U/L (8-44); AST 36 U/L (13-35); Albumin 3.1 g/dL (3.8-4.9); Albumin/Globulin Ratio 1.35 Ratio (1.60-3.17); Alkaline Phosphatase 128 U/L (41-126); BUN/Creat Ratio 13.94 Ratio (12.00-20.00); Blood Urea Nitrogen 22.3 mg/dL (9.0-27.0); Calcium 8.8 mg/dL (8.7-10.3); Carbon Dioxide 24.3 mmol/L (21.6-31.8); Chloride 108 mmol/L (96-109); Chol/HDL Ratio 4.47 Ratio; Globulin 2.3 g/dL (1.6-3.3); Glucose 175 mg/dL (70-110); LDL Cholesterol,Calculated 100.2 mg/dL (0.0-131.0); Potassium 4.8 mmol/L (3.5-5.5); Sodium 142 mmol/L (135-145); Total Bilirubin 0.3 mg/dL (0.3-1.2); Total Protein 5.4 g/dL (6.2-8.2)
[2024-06-19 20:26] LABS: Urine Creatinine 85.6 mg/dL (28.0-217.0)
[2024-06-19 20:47] LABS: Microalbumin Creatinine Ratio >5140 mg/g Cr (0-30)
== END | disposition home or self-care (01) ==
LOC: LABWHC1 11:48
PROVIDERS: ATTEND Internal Medicine
DX: E11.65 Type 2 diabetes mellitus with hyperglycemia (principal)
CPT/HCPCS: 36415; 80053; 80061; 82043; 82570

== ENCOUNTER 2024-07-26 17:37 | Emergency (ER) | payer MEDICARE ==
--- NOTE | 2024-07-26 18:00 | ED ---
Fall HPI - General Chief Complaint: Fall Stated Complaint: Fall, head and left arm injury Time Seen by Provider: 07/26/24 17:50 Source: patient, RN notes reviewed Mode of arrival: wheelchair - History of Present Illness Initial Comments: This is a 73-year-old female with history of A-fib, DM 2 and renal disease, currently taking Eliquis, presenting with fall in parking lot at 1640 today. Patient states she was walking around to the other side of her car when she suffered a trip and fall, losing her balance and ultimately falling backwards, striking the left posterior aspect of her head and attempting to catch herself with her left arm. Patient denies losing consciousness, ongoing headache, neck pain, AMS, vision changes. Endorses transient nausea following the incident that has since resolved. Patient endorses significant left shoulder/arm pain, preventing normal use. Patient states she is left-handed. Patient states she lives alone but brother and sister live nearby to assist if necessary. 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 Witnessed: yes, by family Place Fall Occurred: street Loss of Consciousness: none Prolonged Down Time?: no Symptoms Prior to Fall: none Location: head Location - Extremities: Left: Shoulder, Arm Severity: moderate Context: tripped/slipped - Related Data Home Medications Medication Instructions Recorded Confirmed Venlafaxine HCl [Effexor] 37.5 mg PO QAM 04/15/16 06/30/24 Atorvastatin [Lipitor] 20 mg PO HS 07/14/17 06/30/24 Ergocalciferol (Vitamin D2) 50,000 unit PO Q14D 07/14/17 06/30/24 [Vitamin D2] Furosemide [Lasix] 20 mg PO DAILY 08/05/18 06/30/24 glipiZIDE [Glucotrol] 10 mg PO BID 08/05/18 06/30/24 Metoprolol Tartrate [Lopressor] 100 mg PO BID 02/14/21 06/30/24 allopurinoL [Zyloprim] 100 mg PO DAILY 02/14/21 06/30/24 gemfibroziL [Lopid] 600 mg PO DAILY 02/14/21 06/30/24 metFORMIN HCL 500 mg PO BID 02/14/21 06/30/24 Magnesium 200 mg PO DAILY 10/02/22 06/30/24 Melatonin 2.5 mg PO HS 10/29/22 06/30/24 Unk Ozempic 1 injection SQ SA 10/29/22 06/30/24 lisinopriL [Lisinopril] 2.5 mg PO DAILY 10/29/22 06/30/24 Gabapentin [Neurontin] 1 tab PO DAILY 05/13/23 06/30/24 Previous Rx's Medication Instructions Recorded Apixaban [Eliquis] 5 mg PO BID #60 tab 06/20/18 Allergies Allergy/AdvReac Type Severity Reaction Status Date / Time No Known Allergies Allergy Verified 07/26/24 17:45 Review of Systems ROS Statement: Those systems with pertinent positive or pertinent negative responses have been documented in the HPI. ROS Other: All systems not noted in ROS Statement are negative. Past Medical History Past Medical History: Atrial Fibrillation, Blood Disorder, Diabetes Mellitus, Fibromyalgia, Hyperlipidemia, Hypertension, Osteoarthritis (OA), Renal Disease Additional Past Medical History / Comment(s): NIDDM type II, neuropathy bilateral feet, ,hx arthritis bilateral knees, kidney stones with surgery, sinus allergies. IRON DEFICIENCY ANEMIA. "KIDNEY PROBLEMS". gfr 32 History of Any Multi-Drug Resistant Organisms: None Reported Past Surgical History: Cholecystectomy, Joint Replacement, Orthopedic Surgery, Tubal Ligation Additional Past Surgical History / Comment(s): LITHOTRIPSY, D&C. COLONOSCOPY/B ENIGN POLUP. cardioversion. BILATERAL KNEE REPLACEMENT., cataract right Past Anesthesia/Blood Transfusion Reactions: No Reported Reaction Additional Past Anesthesia/Blood Transfusion Reaction / Comment(s): sometimes slow to come out of it Past Psychological History: Depression Smoking Status: Never smoker Past Alcohol Use History: Rare Past Drug Use History: None Reported - Past Family History Mother Family Medical History: Cancer, Dementia Additional Family Medical History / Comment(s): Mother had colon cancer. Father Family Medical History: CVA/TIA Additional Family Medical History / Comment(s): Father was healthy until later in life when he had a bowel obstruction and CVA. General Exam Limitations: no limitations General appearance: alert, in no apparent distress Head exam: Present: normocephalic, other (Positive left occipital point tenderness without obvious crepitus, depression, hematoma, laceration/bleeding) Eye exam: Present: normal appearance, PERRL, EOMI. Absent: scleral icterus, conjunctival injection, periorbital swelling Pupils: Present: normal accommodation ENT exam: Present: normal exam, mucous membranes moist Neck exam: Present: normal inspection. Absent: tenderness, meningismus, lymphadenopathy Respiratory exam: Present: normal lung sounds bilaterally. Absent: respiratory distress, wheezes, rales, rhonchi, stridor Cardiovascular Exam: Present: regular rate, normal rhythm, normal heart sounds. Absent: systolic murmur, diastolic murmur, rubs, gallop, clicks GI/Abdominal exam: Present: soft, normal bowel sounds. Absent: distended, tenderness, guarding, rebound, rigid Extremities exam: Present: normal capillary refill. Absent: tenderness, pedal edema, joint swelling, calf tenderness Left Shoulder Exam: Present: tenderness (Anterior and lateral tenderness), other (Negative clavicle or scapula tenderness, crepitus, tenting). Absent: full ROM, swelling, deformity, crepitus Upper Arm exam: Present: tenderness (Tenderness across entirety of humerus). Absent: full ROM, deformity, crepidus, dislocation Elbow exam: Present: normal inspection. Absent: tenderness Forearm Wrist exam: Present: normal inspection, full ROM Hand Wrist exam: Present: normal inspection, full ROM, other (Neurovascular intact, radial pulse +2, capillary refill less than 2 seconds) Back exam: Present: normal inspection Neurological exam: Present: alert, oriented X3, CN II-XII intact Psychiatric exam: Present: normal affect, normal mood Skin exam: Present: warm, dry, intact, normal color. Absent: rash Course Vital Signs 07/26/24 07/26/24 07/26/24 17:40 19:06 20:14 Temperature 97.6 F 98.1 F 98.0 F Pulse Rate 77 75 77 Respiratory 18 20 18 Rate Blood Pressure 170/80 138/83 135/76 O2 Sat by Pulse 98 94 L 95 Oximetry Medical Decision Making - Medical Decision Making Was pt. sent in by a medical professional or institution (, PA, CRANE HOIST OR LIFT OPERATOR, urgent care, hospital, or jail...) When possible be specific @ -No Did you speak to anyone other than the patient for history (EMS, parent, family, police, friend...)? What history was obtained from this source @ -No Did you review nursing and triage notes (agree or disagree)? Why? @ -I reviewed and agree with nursing and triage notes Were old charts reviewed (outside hosp., previous admission, EMS record, old EKG, old radiological studies, urgent care reports/EKG's, jail records)? Report findings @ -No old charts were reviewed Differential Diagnosis (chest pain, altered mental status, abdominal pain women, abdominal pain men, vaginal bleeding, weakness, fever, dyspnea, syncope, headache, dizziness, GI bleed, back pain, seizure, CVA, palpatations, mental health, musculoskeletal)? @ -Differential Musculoskeletal Muscular strain, contusion, ligament sprain, fracture, arthritis, septic arthritis, bursitis, cellulitis, muscle spasm, nerve compression, DVT, arterial occlusion, herpes zoster, electrolyte abnormality, tumor.... This is not meant to be in all inclusive list EKG interpreted by me (3pts min.). @ -Not on X-rays interpreted by me (1pt min.). @ -Left shoulder/humerus x-ray shows subtle lucency through surgical neck of humerus suggesting nondisplaced fracture with radiologist suggesting CT for confirmation. CT interpreted by me (1pt min.). @ - Brain/cervical spine CT shows no acute intracranial process or evidence of cervical spine fracture. Radiologist notes suspected calcified right meningioma. Left shoulder CT shows minimally displaced left proximal humerus surgical neck fracture and for many of posterior glenoid, indicating possible fracture. Possible rotator cuff tear and arthritic changes also noted. U/S interpreted by me (1pt. min.). @ -None done What testing was considered but not performed or refused? (CT, X-rays, U/S, labs)? Why? @ -None What meds were considered but not given or refused? Why? @ -None Did you discuss the management of the patient with other professionals (professionals i.e. , PA, CRANE HOIST OR LIFT OPERATOR, lab, RT, psych nurse, protective services social worker, width stripper, teacher, retirement officer, special education case manager)? Give summary @ -No Was smoking cessation discussed for >3mins.? @ -No Was critical care preformed (if so, how long)? @ -No Were there social determinants of health that impacted care today? How? (Homelessness, low income, unemployed, alcoholism, drug addiction, transportation, low edu. Level, literacy, decrease access to med. care, [facility], rehab)? @ -No Was there de-escalation of care discussed even if they declined (Discuss DNR or withdrawal of care, Hospice)? DNR status @ -No What co-morbidities impacted this encounter? (DM, HTN, Smoking, COPD, CAD, Cancer, CVA, ARF, Chemo, Hep., AIDS, mental health diagnosis, sleep apnea, morbid obesity)? @ -Eliquis use Was patient admitted / discharged? Hospital course, mention meds given and route, prescriptions, significant lab abnormalities, going to OR and other pertinent info. @ -Left shoulder/humerus x-ray shows subtle lucency through surgical neck of humerus suggesting nondisplaced fracture with radiologist suggesting CT for con firmation. Brain/cervical spine CT shows no acute intracranial process or evidence of cervical spine fracture. Radiologist notes suspected calcified right meningioma. Left shoulder CT shows minimally displaced left proximal humerus surgical neck fracture and for many of posterior glenoid, indicating possible fracture. Possible rotator cuff tear and arthritic changes also noted. Patient initially provided IM Dilaudid for pain. Additional Dilaudid provided as well as sling to maintain stability of fracture. Patient discharged with T3 starter pack. Advised follow-up with orthopedics for ongoing management of humerus and posterior glenoid fracture. Patient also advised of discovery of meningioma. Advised follow-up with PCP/neurology regarding this. Patient states she lives alone but has a brother and sister living nearby and provide assistance as needed. Advised use of cane/walker for ambulation moving forward to prevent further falls. Discussed patient with Dr. Eastman. Undiagnosed new problem with uncertain prognosis? @ -No Drug Therapy requiring intensive monitoring for toxicity (Heparin, Nitro, Insulin, Cardizem)? @ -No Were any procedures done? @ -No Diagnosis/symptom? @ -Left closed, nondisplaced humerus and glenoid fracture, rotator cuff tear Acute, or Chronic, or Acute on Chronic? @ -Acute Uncomplicated (without systemic symptoms) or Complicated (systemic symptoms)? @ -Uncomplicated Side effects of treatment? @ -No Exacerbation, Progression, or Severe Exacerbation? @ -No Poses a threat to life or bodily function? How? (Chest pain, [place], [place], pneumonia, PE, COPD, DKA, ARF, appy, cholecystitis, CVA, Diverticulitis, Homicidal, Suicidal, threat to staff... and all critical care pts) @ -No Disposition Clinical Impression: Humerus surgical neck fracture, Glenoid fracture of shoulder, Rotator cuff tear, Meningioma Disposition: HOME SELF-CARE Condition: Good Instructions (If sedation given, give patient instructions): Fall Prevention for Older Adults (ED), Proximal Humerus Fracture (ED), Rotator Cuff Tear Repair (DC) Additional Instructions: Follow-up with orthopedics for ongoing management of shoulder/humerus fracture Is patient prescribed a controlled substance at d/c from ED?: No Referrals: Lopez Cruz MD [Primary Care Provider] - 1-2 days Edgar Sands DO [Doctor of Osteopathic Medicine] - 1-2 days Carlito Ricci MD [STAFF PHYSICIAN] - 1-2 days Time of Disposition: 19:42
[2024-07-26] MEDS: HYDROmorphone 0.5 MG/0.5 ML SYRINGE IM STA (18:36)
--- NOTE | 2024-07-26 18:47 | XR ---
EXAMINATION TYPE: XR humerus LT, XR shoulder complete LT DATE OF EXAM: 07/26/2024 6:36 PM COMPARISON: None CLINICAL INDICATION: Female, 73 years old with history of FOOSH; PHH, pain TECHNIQUE: XR humerus LT, XR shoulder complete LT examined in frontal and lateral projections. Front al lateral and scapular Y views of the shoulder. FINDINGS: Has an lucency to the surgical neck of the humerus. The distal humerus appears intact. The remainder of the shoulder including the scapula and clavicle appears intact. IMPRESSION: Subtle lucency through the surgical neck of the humerus suggesting nondisplaced fracture. Consider CT for confirmation. [facility], , 07/26/2024 6:45 PM
--- NOTE | 2024-07-26 19:14 | CT ---
EXAMINATION TYPE: CT brain cspine wo con DATE OF EXAM: 07/26/2024 6:13 PM COMPARISON: None. CLINICAL INDICATION: Female, 73 years old with history of Fall with head trauma; Fall with head traum a. pt on blood thinners, pain TECHNIQUE: Brain: Multiple axial CT images of the brain were obtained without IV contrast. Cspine: Axial CT images from the skull base to the inferior aspect of T2 we obtained without intraven ous contrast. Coronal and sagittal reformatted images were also reviewed. . CT DLP: 1417.3 mGycm, Automated exposure control for dose reduction was used. FINDINGS: Brain: Extra-axial spaces: No abnormal extra-axial fluid collections. Right extra-axial probable calcified m eningioma measuring up to 8 mm. These 2 falx lipomas noted. Ventricular system: Within normal limits cavum septum lucidum. Cerebral parenchyma: No acute intraparenchymal hemorrhage or mass effect. The trimble-white junction is well differentiated. Cerebellum: Unremarkable. Mass effect: No evidence of midline shift. Intracranial vasculature: Atherosclerotic calcifications of the intracranial vessels. Soft tissues: Normal. Calvarium/osseous structures: No depressed skull fracture. Paranasal sinuses and mastoid air cells: Clear. Visualized orbits: Right aphakia. Cervical spine: Fracture: None. Osseous structures: Multilevel degenerative disc disease changes with endplate spurring and disc oste ophyte complex's. Vertebral alignment: Within normal limits. Spinal canal/Neural Foramina: No evidence of significant spinal canal narrowing. No evidence for sign ificant neural foraminal stenosis. Neck soft tissues: Prevertebral soft tissues are within normal limits. Other: The airway is patent. The lung apices are clear. IMPRESSION: 1. No acute intracranial process. 2. No evidence of cervical spine fracture. 3. Mild multilevel degenerative disc disease. 4. Suspected calcified right meningioma [facility], , 07/26/2024 7:11 PM
--- NOTE | 2024-07-26 19:34 | CT ---
EXAMINATION TYPE: CT shoulder LT wo con DATE OF EXAM: 07/26/2024 7:27 PM COMPARISON: . Extremity radiograph same day. CLINICAL INDICATION: Female, 73 years old with history of Possible surgical neck fracture; PHH, Possi le Surgical neck Fx. Pain TECHNIQUE: Axial images were obtained of the CT shoulder LT wo con, Additional coronal and sagittal r eformatted images and soft tissue and bone window were obtained for review. 3-D reconstruction was cr eated on a separate workstation. Contrast used: mL of , (None if empty) Oral contrast used: (None if empty) CT DLP: 423.6 mGycm, Automated exposure control for dose reduction was used. FINDINGS: Minimally displaced/impacted fracture of the surgical neck of the left humerus. Mild degene ration changes with osteophyte formation. Osteophyte reformation joint space narrowing of the acromio n clavicular joint. Mild atrophy changes supraspinatus.. The visualized ribs are intact. The heart is enlarged for size. There is mild to moderate coronary artery atherosclerosis. IMPRESSION: 1. Minimally displaced left proximal humerus surgical neck fracture as seen on radiography. 2. Slight deformity of the posterior glenoid suspicious for fracture. 3. Atrophy changes of the supraspinatus muscle suggestive of rotator cuff tear. 4. Mild to moderate degeneration changes of the common clavicular and glenohumeral joints. [facility], , 07/26/2024 7:32 PM
[2024-07-26] MEDS: HYDROmorphone 1 MG/ML 1 ML SYRINGE IM STA (20:07)
[2024-07-26] MEDS: ACET/COD 300 MG/30 MG STARTER PACK 6 TAB BTL PO STA (20:08)
[2024-07-26 20:14] VITALS: BP 135/76; PULSE 77; RESP 18; TEMP 98
== END 2024-07-26 20:31 | disposition home or self-care (01) ==
LOC: EC 17:37
DX: S42.215A Unspecified nondisplaced fracture of surgical neck of left humerus, initial encounter for closed fracture (principal); S42.145A Nondisplaced fracture of glenoid cavity of scapula, left shoulder, initial encounter for closed fracture; D32.9 Benign neoplasm of meninges, unspecified; W01.0XXA Fall on same level from slipping, tripping and stumbling without subsequent striking against object, initial encounter; Y92.481 Parking lot as the place of occurrence of the external cause
CPT/HCPCS: 73030; 73060; 72125; 70450; 73200; 99284; 96372 ×2; J1171 ×2

== ENCOUNTER → 2024-12-22 | Outpatient (CLI) | payer MEDICARE ==
--- NOTE | 2024-12-22 14:15 | US ---
EXAMINATION TYPE: US kidneys/renal and bladder DATE OF EXAM: 12/22/2024 COMPARISON: US 2021 CLINICAL INDICATION: Female, 74 years old with history of N18.32 CHRONIC KIDNEY DISEASE, STAGE 3B; Li thotripsy. CKD Stage 3B TECHNIQUE: Grayscale imaging of the bilateral kidneys and urinary bladder: FINDINGS: EXAM MEASUREMENTS: Right Kidney: 11.1 x 5.6 x 6.0 cm Left Kidney: 10.8 x 5.5 x 5.1 cm Right Kidney: Kidney appears hyperechoic. No hydronephrosis or masses seen Left Kidney: Kidney appears hyperechoic. *Anechoic area seen lower pole: 1.5 x 1.6 x 1.1 cm. *Hypoechoic area seen lower pole: 1.6 x 1.6 x 1.5 cm. Bladder: Appears anechoic. Slightly limited evaluation due to bowel gas. Bilateral Jets seen: Yes IMPRESSION: 1. Increased echo pattern to the renal cortex can be associated with chronic medical renal disease. 2. Indeterminate left renal 1.6 cm lower pole Lesion. Recommend follow-up MRI scan [facility], , 12/22/2024 2:13 PM
== END | disposition home or self-care (01) ==
LOC: RADUSWWP 13:04
PROVIDERS: ATTEND Internal Medicine
DX: N18.32 Chronic kidney disease, stage 3b (principal)
CPT/HCPCS: 76770